=== PATIENT | female | born 1970 | race Caucasian/White ===

== ENCOUNTER 2017-05-27 12:33 | Inpatient (IN) | payer BC ==
[2017-05-27 12:38] VITALS: BMI 36.0
--- NOTE | 2017-05-27 14:19 | PDOC ---
History of Present Illness <Ra Wellington - Last Filed: 05/27/17 14:18> - General History Source: Patient Exam Limitations: No Limitations - History of Present Illness Initial Comments: 05/27/17 14:47 Patient is a 46F with history of non insulin dependent diabetes here today complaining of a right foot drop for the past couple of weeks. She endorses associated lower back pain and right foot numbness. She denies urinary incontinence. She denies nausea, vomiting, fevers and chills. She denies chest pain, abdominal pain and shortness of breath. She has been evaluated by Dr. Marroquin , neurosurgeon, already who is taking her to the OR. <Jose Martin Jason - Last Filed: 05/27/17 16:02> - General Chief Complaint: Weakness Stated Complaint: WEAKNESS Time Seen by Provider: 05/27/17 14:18 Past History - Past Medical History Diabetes: Yes - Psycho/Social/Smoking Cessation Hx Suicidal Ideation: No Smoking History: Current every day smoker Number of Cigarettes Smoked Daily: 5 Information on smoking cessation initiated: No <Ra Wellington - Last Filed: 05/27/17 14:18> <Jose Martin Jason - Last Filed: 05/27/17 16:02> - Past Medical History Allergies/Adverse Reactions: Allergies Allergy/AdvReac Type Severity Reaction Status Date / Time No Known Allergies Allergy Verified 05/27/17 12:38 Home Medications: Ambulatory Orders Glyburide 2 mg PO HS 05/27/17 Glyburide [Diabeta -] 1 mg PO DAILY 05/27/17 Metformin HCl 500 mg PO DAILY 05/27/17 Metformin HCl [Glucophage] 1,000 mg PO HS 05/27/17 Review of Systems - Review of Systems Comments:: 05/27/17 14:51 GENERAL/CONSTITUTIONAL: No fever or chills. No weakness. HEAD, EYES, EARS, NOSE AND THROAT: No change in vision. No ear pain or discharge. No sore throat. CARDIOVASCULAR: No chest pain or shortness of breath RESPIRATORY: No cough, wheezing, or hemoptysis. GASTROINTESTINAL: No nausea, vomiting, diarrhea or constipation. GENITOURINARY: No dysuria, frequency, or change in urination. MUSCULOSKELETAL: Positive for lower back pain. SKIN: No rash NEUROLOGIC: No headache, vertigo, loss of consciousness. Positive for right foot weekness and numbness HEMATOLOGIC/LYMPHATIC: No anemia, easy bleeding, or history of blood clots. ALLERGIC/IMMUNOLOGIC: No hives or skin allergy. <Jose Martin Jason - Last Filed: 05/27/17 16:02> *Physical Exam - Vital Signs Last Vital Signs Temp Pulse Resp BP Pulse Ox 98 F 111 H 18 151/80 97 05/27/17 12:35 05/27/17 12:35 05/27/17 12:35 05/27/17 12:35 05/27/17 12:35 <Ra Wellington - Last Filed: 05/27/17 14:18> - Vital Signs Last Vital Signs Temp Pulse Resp BP Pulse Ox 98 F 111 H 18 151/80 97 05/27/17 12:35 05/27/17 12:35 05/27/17 12:35 05/27/17 12:35 05/27/17 12:35 - Physical Exam Comments: 05/27/17 14:52 GENERAL: Awake, alert, and fully oriented, in no acute distress HEAD: No signs of trauma, normocephalic, atraumatic EYES: PERRLA, EOMI, sclera anicteric, conjunctiva clear ENT: Auricles normal inspection, hearing grossly normal, nares patent, oropharynx clear without exudates. Moist mucosa NECK: Normal ROM, supple, no lymphadenopathy, JVD, or masses LUNGS: No distress, speaks full sentences, clear to auscultation bilaterally HEART: Regular rate and rhythm, normal S1 and S2, no murmurs, rubs or gallops, peripheral pulses normal and equal bilaterally. ABDOMEN: Soft, nontender, normoactive bowel sounds. No guarding, no rebound. No masses EXTREMITIES: Normal inspection, Normal range of motion, no edema. No clubbing or cyanosis. NEUROLOGICAL: Cranial nerves II through XII grossly intact. Normal speech, 3/5 strength in right foot SKIN: Warm, Dry, normal turgor, no rashes or lesions noted. <Jose Martin Jason - Last Filed: 05/27/17 16:02> ED Treatment Course - LABORATORY CBC & Chemistry Diagram: 05/27/17 14:35 05/27/17 14:35 - RADIOLOGY Radiology Studies Ordered: Category Date Time Status CHEST X-RAY PORTABLE* [RAD] Stat Radiology 05/27/17 14:30 Ordered <Jose Martin Jason - Last Filed: 05/27/17 16:02> Medical Decision Making - Medical Decision Making 05/27/17 14:53 Patient is a 46F with history of non-insulin dependent diabetes here today complaining of right sided foot drop secondary to radiculopathy. Already evaluated by Dr. Marroquin, who will take to OR. Vital signs stable. Will admit to medicine. <Jose Martin Jason - Last Filed: 05/27/17 16:02> *DC/Admit/Observation/Transfer - Attestations Physician Attestion: 05/27/17 14:19 I, Dr. Ra Wellington, attest that this document has been prepared under my direction and personally reviewed by me in its entirety. I further attest, that it accurately reflects all work, treatment, procedures and medical decision -making performed by me. <Ra Wellington - Last Filed: 05/27/17 14:18> - Discharge Dispostion Admit: Yes <Jose Martin Jason - Last Filed: 05/27/17 16:02> Diagnosis at time of Disposition: Right foot drop - Discharge Dispostion Condition at time of disposition: Unchanged/Unknown
--- NOTE | 2017-05-27 14:40 | PN ---
Progress Note (short form) - Note Progress Note: NEUROSURGERY CONSULT DICTATED Pt examined MRI reviewed Acute R foot drop R EHL/inv 2/5; R TA/ev 3-4-; numbness R L4-5 Wbc 12.4; Bun/Cr normal MRI- R L4-5 HNP with downwardly extruded fragement with R thecal sac and R L5 > L4 root impingement For emergency laminectomies R L4-5 and microdiscectomy D/w ED team Risks: bleeding, infection, CSF leak, nerve injury, general anesthesia, DVT/PE Risks somewhat higher given DM Pt will be admitted by medical team- Dr Alford All questions answered
[2017-05-27] MEDS ORDERED: BACITRACIN 15 GM TUBE TOPICAL OINTMENT ONE (14:42)
[2017-05-27 15:08] LABS: MEAN CELL VOLUME 82.3 fl (80-96); MEAN PLT VOLUME 10.9 fl (7.5-11.1); PLATELET COUNT 188 K/MM3 (134-434); WHITE BLOOD COUNT 12.4 K/mm3 (4.0-10.0)
[2017-05-27 15:11] LABS: ANION GAP 10 (8-16); BILIRUBIN,TOTAL 0.5 mg/dL (0.2-1.0); CALCIUM 10.1 mg/dL (8.5-10.1); CO2 25 mmol/L (21-32); CREATININE 0.7 mg/dL (0.55-1.02); GLUCOSE,RANDOM 116 mg/dL (74-106); SGOT/AST 7 U/L (15-37); SGPT/ALT 20 U/L (12-78); TOT PROT 7.4 g/dl (6.4-8.2)
[2017-05-27 15:12] LABS: ALK PHOS 52 U/L (45-117)
[2017-05-27 15:13] LABS: URINE APPEARANCE SLCLOUDY; URINE BILIRUBIN NEGATIVE (NEGATIVE); URINE BLOOD 1+ (NEGATIVE); URINE COLOR YELLOW; URINE GLUCOSE (UA) NEGATIVE (NEGATIVE); URINE KETONE NEGATIVE (NEGATIVE); URINE LEUK ESTERASE NEGATIVE (NEGATIVE); URINE NITRITE NEGATIVE (NEGATIVE); URINE PROTEIN NEGATIVE (NEGATIVE); URINE UROBILINOGEN NEGATIVE mg/dL (0.2-1.0)
[2017-05-27 15:19] LABS: INR 1.01 (0.82-1.09); PROTHROMBIN TIME (PATIENT) 11.1 SEC (9.98-11.88)
[2017-05-27 15:40] LABS: URINE BACTERIA RARE /hpf (NONE SEEN); URINE MUCUS RARE; URINE RBC <1 /hpf (0-3); URINE WBC 2 /hpf (3-5)
[2017-05-27] MEDS ORDERED: PROPOFOL 20 ML ONE (15:41)
[2017-05-27] MEDS ORDERED: MIDAZOLAM HCL 2 MG/2 ML SINGLE DOSE VIAL ONE ×2 (15:41)
[2017-05-27] MEDS ORDERED: ROCURONIUM BROMIDE 50 MG/5 ML VIAL ONE ×2 (15:41→16:35)
[2017-05-27] MEDS ORDERED: ONDANSETRON 4 MG/2 ML VIAL ONE (16:26)
[2017-05-27] MEDS ORDERED: ceFAZolin SODIUM 1 GM VIAL ONE (16:26)
[2017-05-27] MEDS ORDERED: ceFAZolin SODIUM 1 GM VIAL IVPB ONE (16:27)
[2017-05-27] MEDS ORDERED: glyBURIDE 2.5 MG TABLET (FP) PO SCH (16:30)
[2017-05-27] MEDS ORDERED: THROMBIN (BOVINE) 5,000 UNIT VIAL TP ONE (16:40)
[2017-05-27] MEDS ORDERED: GELATIN SPONGE,ABSORBABLE 1 GM PACKET TP ONE (16:40)
[2017-05-27] MEDS ORDERED: BACITRACIN 50,000 UNITS VIAL TP ONE (16:50)
[2017-05-27] MEDS ORDERED: PROMETHAZINE HCL 25 MG/1 ML VIAL IVPUSH PRN (17:46)
[2017-05-27] MEDS ORDERED: ONDANSETRON 4 MG/2 ML VIAL IVPUSH PRN (17:46)
[2017-05-27] MEDS ORDERED: HYDROmorphone HCL CARPU-JECT 1 MG/1 ML DISP.SYRIN IVPUSH PRN (17:46)
[2017-05-27] MEDS ORDERED: LACTATED RINGERS SOLUTION 1,000 ML IV SCH (18:00)
[2017-05-27] MEDS ORDERED: GLYCOPYRROLATE 0.2 MG/1 ML VIAL ONE (18:17)
[2017-05-27] MEDS ORDERED: NEOSTIGMINE METHYLSULFATE 0.5 MG/ML - 10 ML MDV ONE (18:17)
--- NOTE | 2017-05-27 18:40 | OP ---
Operative Note - Note: Operative Date: 05/27/17 Pre-Operative Diagnosis: R L4-5 HNP with stenosis and foot drop Operation: R L4-L5 partial laminectomies, medial facetectomy, lysis of dense adhesion; microdiscectomy; microdissection Findings: Extremely deep exposure; thinned out dura under pressure and bulging out; extruded disc Surgeon: Jose Martin Marroquin House Father: Joanne Tsang Anesthesiologist/GAS MAIN AND LINE FITTER: Cynthia Tanner Anesthesia: General Specimens Removed: R L4-5 disc Estimated Blood Loss (mls): 25 Operative Report Dictated: Yes
--- NOTE | 2017-05-27 18:49 | EKG ---
Test Reason : Blood Pressure : / mmHG Vent. Rate : 089 BPM Atrial Rate : 089 BPM P-R Int : 130 ms QRS Dur : 080 ms QT Int : 366 ms P-R-T Axes : 039 031 020 degrees QTc Int : 445 ms NORMAL SINUS RHYTHM POSSIBLE LEFT ATRIAL ENLARGEMENT BORDERLINE ECG NO PREVIOUS ECGS AVAILABLE Confirmed by YONATHAN PIERRE MD ([id number]) on 05/27/2017 6:49:03 PM Referred By: Confirmed By:YONATHAN PIERRE MD
--- NOTE | 2017-05-27 18:50 | PN ---
Progress Note (short form) - Note Progress Note: NEUROSURGERY In PACU R leg feels OK CV- RRR; Lungs- CTA; Abd- benign; Ext- no sign of DVT PE: R EHL/inv 3/5; R TA/ev 4-; numbness R L4-5 overall improved Dressing C/D/I FS 110's Bedrest x 24 hours given intra-op findings Encouraged R foot exercises in bed All questions answered Findings d/w /family in PACU as well
[2017-05-27] MEDS: D5-1/2NS+20 MEQ KCL - 1,000 ML IV SCH (21:39)
[2017-05-27] MEDS: DOCUSATE SODIUM 100 MG CAPSULE (FP) PO SCH (21:40)
[2017-05-27] MEDS: diazePAM 5 MG TABLET PO SCH (21:40)
--- NOTE | 2017-05-27 22:17 | HP ---
Admitting History and Physical - Primary Care Physician PCP: Trish Alford S - Admission Chief Complaint: LBP RLE pain and R foot drop x 2 weeks History of Present Illness: Patient is a 46F with history of non insulin dependent diabetes admitted today after complaining of a right foot drop for the past couple of weeks. She endorses associated lower back pain and right foot numbness. She denies urinary incontinence. She denies nausea, vomiting, fevers and chills. She denies chest pain, abdominal pain and shortness of breath. She had been evaluated by Dr. Marroquin , neurosurgeon, and had emergent laminectomy earlier today; I reviewed pt's labs , chart previously pt states she is not pt is postop axox3 nad some back pain after surgery, less RLE pain, able to move R foot but still has some weakness family (siblings)_ at bedside, d/w them also History Source: Patient, Family Member, Medical Record Limitations to Obtaining History: No Limitations - Past Medical History Endocrine: Yes: Diabetes Mellitus - Smoking History Smoking history: Current every day smoker Aproximately how many cigarettes per day: 5 - Alcohol/Substance Use Hx Alcohol Use: No History of Substance Use: reports: None - Social History Usual Living Arrangement: Yes: Alone ADL: Independent Occupation: patrol sergeant [employer] History of Recent Travel: No Home Medications - Allergies Allergies/Adverse Reactions: Allergies Allergy/AdvReac Type Severity Reaction Status Date / Time No Known Allergies Allergy Verified 05/27/17 12:38 - Home Medications Home Medications: Ambulatory Orders Glyburide 2 mg PO HS 05/27/17 Glyburide [Diabeta -] 1 mg PO DAILY 05/27/17 Metformin HCl 500 mg PO DAILY 05/27/17 Metformin HCl [Glucophage] 1,000 mg PO HS 05/27/17 Family Disease History - Family Disease History Family History: Unremarkable Review of Systems - Review of Systems Constitutional: denies: Chills, Fever, Lethargy Eyes: denies: Blind Spots, Blurred Vision, Double Vision HENT: denies: Ear Pain Neck: denies: Decreased ROM, Tenderness Cardiovascular: denies: Chest Pain, Edema, Palpitations, Shortness of Breath Respiratory: denies: Cough, SOB Gastrointestinal: reports: Nausea (after anesthesia). denies: Abdominal Pain, Constipation, Diarrhea, Vomiting Genitourinary: denies: Burning, Discharge, Dysuria, Flank Pain Musculoskeletal: reports: Back Pain, Extremity Pain Integumentary: denies: Pruritis, Rash Neurological: reports: Pre-Existing Deficit (RLE pain and numbness, R foot drop) . denies: Confusion, Dizziness Endocrine: denies: Excessive Sweating, Flushing Hematology/Lymphatic: denies: Easily Bruised, Excessive Bleeding Psychiatric: denies: Altered Sleep Pattern, Anxiety, Depression, Suicidal Physical Examination Vital Signs: Vital Signs Temperature 98.0 F 05/27/17 20:00 Pulse Rate 78 05/27/17 20:00 Respiratory Rate 18 05/27/17 20:00 Blood Pressure 108/50 05/27/17 20:00 O2 Sat by Pulse Oximetry (%) 100 05/27/17 19:45 Constitutional: Yes: No Distress, Calm Eyes: Yes: Conjunctiva Clear HENT: Yes: Atraumatic Neck: Yes: Supple Cardiovascular: Yes: Regular Rate and Rhythm Respiratory: Yes: CTA Bilaterally Gastrointestinal: Yes: Soft. No: Distention, Tenderness Renal/: No: CVA Tenderness - Left, CVA Tenderness - Right Musculoskeletal: No: Joint Stiffness, Joint Swelling Extremities: Yes: Other (R foot some residula weakness noted). No: Cold, Cool, Cyanosis Edema: No Peripheral Pulses WNL: Yes Integumentary: No: Rash, Venous Stasis Changes Neurological: Yes: WNL, Alert, Oriented ...Motor Strength: WNL (limited exam, pt in bed postop - moves U/LE bilat but some R foot drop noted) Psychiatric: Yes: WNL, Alert, Oriented. No: Agitated, Suicidal Ideation Labs: CBC, BMP 05/27/17 14:35 05/27/17 14:35 Imaging - Results Other: Report Reviewed Assessment/Plan Patient is a 46F with history of non insulin dependent diabetes admitted with LBP and a right foot drop for the past couple of weeks. She has been evaluated by Dr. Marroquin, neurosurgeon, and already had emergent laminectomy BGM control; sq insulin per sliding scale pain meds stools softeners incentive spirometry falls DVT pfx to start PT per NS no smoking; weight loss; d/w pt and family at bedside
[2017-05-28] MEDS: CEFAZOLIN 1 GM/D5W 50 ML IVPB SCH ×2 (01:45→11:17)
[2017-05-28] MEDS: diazePAM 5 MG TABLET PO SCH ×3 (02:40→17:38)
[2017-05-28] MEDS: DOCUSATE SODIUM 100 MG CAPSULE (FP) PO SCH ×3 (06:28→22:47)
[2017-05-28] MEDS: metFORMIN HCL 500 MG TABLET (FP) PO SCH ×2 (06:29→17:27)
[2017-05-28] MEDS ORDERED: glyBURIDE 1.25 MG TABLET PO SCH ×2 (07:00)
--- NOTE | 2017-05-28 07:33 | PN ---
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
[2017-05-28] MEDS: HYDROmorphone *PCA* 10MG/50ML DISP.SYRIN PCA SCH ×2 (08:18→17:38)
--- NOTE | 2017-05-28 08:45 | CONS ---
DATE OF CONSULTATION: 05/27/2017 CHIEF COMPLAINT: Progressive right foot drop. HISTORY OF PRESENT ILLNESS: The patient is a 46-year-old right-handed female with history of obesity and type 2 diabetes, who complains of a several-week history of sciatica. It had started a while back, and her pain has actually improved after taking a steroid dose pack and some pain medications. However, over the past week and a half, she started experiencing increasing right-leg weakness and was walking with a limp. She was noticed by her employer, who was a physician, to have the walking difficulty. The patient meanwhile has been dragging her right foot, which has been worsening the past few days. There is also numbness in her right leg. She denies bowel/bladder dysfunction. She did have lower back problem in the past. She has no fever or chills or any sign of infection. In fact, there have been no recent infections. She denies any chest pain, shortness of breath, or any cardiac issues. The patient was seen by a physical therapist and was advised to see a neurosurgeon right away. PAST MEDICAL HISTORY: Significant for diabetes, obesity. MEDICATIONS: Include glimepiride and Glucophage. ALLERGIES: There are no known drug allergies. FAMILY HISTORY: Noncontributory. Noncontributory for any spinal disease. SOCIAL HISTORY: She smokes half-a-pack of cigarettes a day and was very strongly encouraged to quit smoking. She drinks alcohol socially. She lives at home with her family. REVIEW OF SYSTEMS: Otherwise negative for other major cardiovascular, pulmonary , gastrointestinal, genitourinary, endocrinologic, neurologic, psychologic, or constitutional problems except for the above. PHYSICAL EXAMINATION: Vital signs: Temperature is 98, blood pressure is 151/80, pulse rate 111, O2 saturation is 97% on room air. HEENT: Examination shows her to be normocephalic, atraumatic, anicteric. Neck: Supple with no lymphadenopathy, no carotid bruit. Coronary: Examination demonstrates a regular rhythm without a murmur. Lungs: Clear to auscultation bilaterally. Abdomen: Benign. Extremities: Examination shows no signs of DVT. Neurologic: She is awake and alert and oriented x4. Cranial nerve examination is intact 2-12. Motor examination shows 5/5 strength except right lower extremity. Right extensor hallucis longus is 2/5. There is right foot inversion. Right tibialis anterior and foot eversion are 4-/3-4-/5. Right quadriceps and planter flexion are 4+/5. Left lower extremity strength is 5/5. Sensory examination demonstrates sensation to be intact to light touch and vibratory sensation of right L5 greater than L4 and S1 distribution. Deep tendon reflexes showed 2+ throughout. There is no pathological long tract sign. Her gait is antalgic and she favors right lower extremity. She also has a right flip-flop. Examination of the lower back shows a paraspinal muscle spasm predominantly right side and right-sided sciatic notch_ tenderness. She has negative straight-leg raising on the right to 60 degrees. IMAGING: MRI of the lumber spine demonstrated L4-L5 degenerative disc disease with right-sided paracentral disc herniation or downward extruding disc fragment. There is impingement of thecal sac as well as right L4 and L5 nerve roots. There is mild spondylosis throughout. LABORATORY DATA: Lab results are pending. IMPRESSION: 1. Right L4-L5 paracentral disc herniation with acute right L4-L5 radiculopathy including acute foot drop. 2. Diabetes. RECOMMENDATIONS: The patient presented with progressive right foot drop. Her strength has been worsening over the last week and a half at least. She walks with audible flip- flop, and has weakness and numbness in the right lower extremity corresponding predominantly to the L5 distribution. This also corresponds to her L4-L5 herniated disc on her right on the MRI. She is a candidate for an emergency right L4-L5 laminectomy and microdiscectomy for her foot drop. The risks of procedure include, but are not limited to, bleeding, infection, dural tear with CSF leak, neurological injury including thromboembolic risk, and other risks of general anesthesia. Given that she is diabetic, her risk are somewhat higher. The patient understands the indications for the procedure, the procedure in detail, risks and benefits, and alternative treatments for her lumbar condition, and she wished to proceed. No guarantees were given for a favorable outcome. She will be admitted by the medical team and will have baseline blood tests as well as chest x-ray and EKG done. All questions were answered at beside in the emergency room. Her family was also present, and all questions were answered. We also discussed potential recovery course, as well. Given her neurological progress and neurological deficit and corresponding neuroimaging findings, surgery unfortunately is the only way to go , and the emergency surgery is called for because of her foot drop. CANDIDO BABIN M.D. ARACELIS/[id number] MTDD
--- NOTE | 2017-05-28 08:45 | PN ---
Progress Note (short form) - Note Progress Note: Anesthesia postop note 46 y/o F s/p GA for Lumbar laminectomy, Dilaudid back up scan coordinator for postop pain management POD#1, vss, aaox3, pain well controlled overnight, no anesthesia complications. Will continue back up scan coordinator today.
--- NOTE | 2017-05-28 10:15 | PN ---
Progress Note, Physician Chief Complaint: in bed did not get OOB yet; less back pain, less RLE pain, more strong R foot - Current Medication List Current Medications: Active Medications Diazepam (Valium -) 5 mg PO Q8H [facility] Last Admin: 05/28/17 09:57 Dose: 5 mg Docusate Sodium (Colace -) 100 mg PO TID [facility] Last Admin: 05/28/17 06:28 Dose: 100 mg Glimepiride (Amaryl -) 1 mg PO DAILY@0700 [facility] Glimepiride (Amaryl -) 2 mg PO DAILY@1700 [facility] Hydromorphone HCl (Dilaudid Pediatric Nurse Practitioner -) 0 mg MEDICINE AIDE MEDICINE AIDE [facility]QUEZ PRN Reason: Protocol Stop: 05/30/17 17:48 Last Admin: 05/28/17 08:18 Dose: Not Given Cefazolin Sodium (Ancef 1 Gm Premixed Ivpb -) 50 mls @ 100 mls/hr IVPB Q8H-IV [facility] Stop: 05/28/17 10:29 Last Admin: 05/28/17 01:45 Dose: 100 mls/hr Potassium Chloride/Dextrose/Sod Cl (D5-1/2ns+20 Meq Kcl -) 1,000 mls @ 100 mls/ hr IV ASDIR [facility] Last Admin: 05/27/17 21:39 Dose: Not Given Metformin HCl (Glucophage -) 500 mg PO ACBK [facility] Last Admin: 05/28/17 06:29 Dose: Not Given Metformin HCl (Glucophage -) 1,000 mg PO ACDIN [facility] - Objective Vital Signs: Vital Signs Temperature 98.9 F 05/28/17 06:00 Pulse Rate 77 05/28/17 06:00 Respiratory Rate 20 05/28/17 06:00 Blood Pressure 99/50 05/28/17 06:00 O2 Sat by Pulse Oximetry (%) 100 05/27/17 23:39 Constitutional: Yes: No Distress, Calm Eyes: Yes: Conjunctiva Clear HENT: Yes: Atraumatic Neck: Yes: Supple Cardiovascular: Yes: Regular Rate and Rhythm Respiratory: Yes: CTA Bilaterally Gastrointestinal: Yes: Soft. No: Distention, Tenderness Genitourinary: No: CVA Tenderness - Left, CVA Tenderness - Right, Hematuria Musculoskeletal: No: Joint Stiffness, Joint Swelling Extremities: No: Cold, Cool, Cyanosis Edema: No Peripheral Pulses WNL: Yes Integumentary: No: Rash, Venous Stasis Changes Neurological: Yes: WNL, Alert, Oriented ...Motor Strength: WNL (R foot drop improving) Psychiatric: Yes: WNL, Alert, Oriented. No: Agitated, Suicidal Ideation Labs: CBC, BMP 05/27/17 14:35 05/27/17 14:35 INR, PTT INR 1.01 (0.82-1.09) 05/27/17 14:35 - ....Imaging Other: Report Reviewed Assessment/Plan Patient is a 46F with history of non insulin dependent diabetes admitted with LBP and a right foot drop for the past couple of weeks. She has been evaluated by Dr. Marroquin, neurosurgeon, and already had emergent laminectomy BGM control; sq insulin per sliding scale pain meds stools softeners incentive spirometry falls DVT pfx to start PT per NS no smoking; weight loss; d/w pt and staff
--- NOTE | 2017-05-28 11:34 | SURG ---
Surgery Sports Journalist Note Sports Journalist: Joanne Tsang PA-C Date of Service: 05/27/17 Diagnosis: R L4-5 HNP with stenosis and foot drop Procedure: R L4-L5 partial laminectomies, medial facetectomy, lysis of dense adhesion; microdiscectomy; microdissection I was present for the entirety of the operative procedure. For further detail, please refer to operative report. Visit type - Case Type Case Type: ED Admission - Emergency Emergency Visit: Yes Care time: The patient presented to the Emergency Department on the above date and was hospitalized for further evaluation of their emergent condition. - New patient This patient is new to me today: Yes Date on this admission: 05/28/17 - Critical Care Critical Care patient: No
[2017-05-28] MEDS ORDERED: DEXTROSE 5%-WATER - 50 ML IVPB ONE (12:15)
[2017-05-28] MEDS ORDERED: ceFAZolin SODIUM 1 GM VIAL ONE (12:15)
[2017-05-28] MEDS ORDERED: CEFAZOLIN 1 GM in DEXTROSE 5%-WATER - 50 ML IVPB ONE (12:16)
[2017-05-28] MEDS ORDERED: glyBURIDE 2.5 MG TABLET (FP) PO SCH ×2 (16:30)
[2017-05-28] MEDS: D5-1/2NS+20 MEQ KCL - 1,000 ML IV SCH (17:26)
[2017-05-28] MEDS: GLIMEPIRIDE 2 MG TABLET (FP) PO SCH (17:28)
[2017-05-29] MEDS: diazePAM 5 MG TABLET PO SCH ×3 (02:06→18:10)
[2017-05-29] MEDS ORDERED: PT OWN MED DRAWER 7, Y5N ONE ×4 (05:55→17:12)
[2017-05-29] MEDS: metFORMIN HCL 500 MG TABLET (FP) PO SCH ×2 (06:21→17:22)
[2017-05-29] MEDS: DOCUSATE SODIUM 100 MG CAPSULE (FP) PO SCH ×3 (06:21→21:57)
[2017-05-29] MEDS: GLIMEPIRIDE 1 MG TABLET (FP) PO SCH (06:21)
--- NOTE | 2017-05-29 07:42 | PN ---
Progress Note (short form) - Note Progress Note: NEUROSURGERY POD #3 Incisional pain Mild H/A and nausea R leg feels better, minimal sciatica Tmax 99.1, VSS CV- RRR; Lungs- CTA; Abd- benign; Ext- no sign of DVT PE: R EHL/inv 4-/5; R TA/ev 4-4-; numbness R L4-5 Dressing C/D/I- changed OOB with assistance PT Encouraged R foot exercises in bed Incentive spirometry Change pain meds
[2017-05-29 07:51] LABS: BASOPHIL 0.4 % (0-2.0); EOSINOPHIL 1.1 % (0-4.5); MCH 27.1 pg (25.7-33.7); MCHC 32.7 g/dl (32.0-36.0); MEAN PLT VOLUME 10.9 fl (7.5-11.1); NEUTROPHILS 71.9 % (42.8-82.8); PLATELET COUNT 167 K/MM3 (134-434); WHITE BLOOD COUNT 13.9 K/mm3 (4.0-10.0)
[2017-05-29 08:29] LABS: ALBUMIN 2.8 g/dl (3.4-5.0); ANION GAP 6 (8-16); CALCIUM 8.2 mg/dL (8.5-10.1); CO2 28 mmol/L (21-32); CREATININE 0.5 mg/dL (0.55-1.02); GLUCOSE,RANDOM 141 mg/dL (74-106); SGOT/AST 6 U/L (15-37); SGPT/ALT 14 U/L (12-78)
[2017-05-29 08:30] LABS: ALK PHOS 50 U/L (45-117); BILIRUBIN,TOTAL 0.6 mg/dL (0.2-1.0); TOT PROT 5.7 g/dl (6.4-8.2)
--- NOTE | 2017-05-29 08:47 | PN ---
Progress Note, Physician Chief Complaint: Pt. pain controlled adequately, had some nausea with SPEECH THERAPY TEACHER. - Current Medication List Current Medications: Active Medications Diazepam (Valium -) 5 mg PO Q8H [facility] Last Admin: 05/29/17 02:06 Dose: 5 mg Docusate Sodium (Colace -) 100 mg PO TID [facility] Last Admin: 05/29/17 06:21 Dose: 100 mg Glimepiride (Amaryl -) 1 mg PO DAILY@0700 [facility] Last Admin: 05/29/17 06:21 Dose: 1 mg Glimepiride (Amaryl -) 2 mg PO DAILY@1700 [facility] Last Admin: 05/28/17 17:28 Dose: 2 mg Potassium Chloride/Dextrose/Sod Cl (D5-1/2ns+20 Meq Kcl -) 1,000 mls @ 100 mls/ hr IV ASDIR [facility] Last Admin: 05/28/17 17:26 Dose: 100 mls/hr Metformin HCl (Glucophage -) 500 mg PO ACBK [facility] Last Admin: 05/29/17 06:21 Dose: 500 mg Metformin HCl (Glucophage -) 1,000 mg PO ACDIN [facility] Last Admin: 05/28/17 17:27 Dose: 1,000 mg Oxycodone HCl (Roxicodone -) 5 mg PO Q4H PRN PRN Reason: PAIN - Objective Vital Signs: Vital Signs Temperature 98.8 F 05/29/17 06:00 Pulse Rate 85 05/29/17 06:00 Respiratory Rate 20 05/29/17 06:00 Blood Pressure 117/52 05/29/17 06:00 O2 Sat by Pulse Oximetry (%) 100 05/28/17 22:00 Constitutional: Yes: Well Nourished, No Distress, Calm Neurological: Yes: WNL, Alert, Oriented ...Motor Strength: WNL Labs: CBC, BMP 05/29/17 07:40 INR, PTT INR 1.01 (0.82-1.09) 05/27/17 14:35 Assessment/Plan POD#1 s/p L4-5 Lumbar laminectomy under GA. Doing well. 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 Dr. Marroquin to start oral pain medication
[2017-05-29] MEDS: D5-1/2NS+20 MEQ KCL - 1,000 ML IV SCH ×2 (08:54→18:31)
--- NOTE | 2017-05-29 11:11 | OP ---
DATE OF OPERATION: 05/27/2017 PREOPERATIVE DIAGNOSES: 1. Lumbar degenerative disk disease. 2. L4-5. 3. Obesity. 4. Diabetes. POSTOPERATIVE DIAGNOSES: 1. Lumbar degenerative disk disease. 2. L4-5. 3. Obesity. 4. Diabetes. ATTENDING SURGEON: Jose Martin Babin MD LIBRARY CIRCULATION ASSISTANT: NORIS Steward PROCEDURES: 1. Partial right L4 and L5 laminectomies including medial facetectomy and foraminotomy for decompression of thecal sac at right L4 and L5 nerve roots. 2. Right L4-5 microdiscectomy. 3. Microsurgical dissection with the operating microscope and microsurgical technique (52200). ANESTHESIA: General endotracheal. ANESTHESIOLOGIST: Cynthia Tanner MD ESTIMATED BLOOD LOSS: Was 25 mL. FINDINGS: 1. Significant pressure on dural sac with extremely thinned out dura, bulging out after lamina and ligament removal. 2. Dense epidural fibrosis. INDICATIONS: The patient is a 46-year-old female with history of obesity and diabetes and hypertension who several months ago, she had exacerbation of her lower back pain with sciatica. Sciatica subsided but over the past couple of weeks, she started developing right leg numbness and weakness. She was starting to walk with a foot drop. An MRI demonstrated previously L4-5 disk herniation. Because of her progressive neurological deficits including a foot drop, she was evaluated in the emergency room and admitted for surgical intervention. The risks of surgery included but were not limited to bleeding, infection, dural tear with CSF leak, neurological injury, increased thromboembolic risks, and other risks of general anesthesia. Because of her long-standing back problem and diabetes the risks are higher. The patient understood the indications for the procedure, the procedure in detail, risks and benefits, and alternatives for treatment of her lumbar condition and wished to proceed. No guarantees were given for a favorable outcome. PROCEDURE IN DETAIL: After the patient was taken to the operating room, she was placed in supine position. After general anesthesia was induced and appropriate monitoring lines were placed, the patient was turned into a prone position on a Kapil frame. All pressure points were checked and padded. Lumbar region was cleaned with alcohol and prepped with Betadine, and localization was obtained with the spinal needle in place. An approximately 1/2-inch incision was planned over the L4-5 interlaminar space. The O2 saturation was checked for both lower extremity with patient in the prone position, and they were both 100%. A skin incision was done with a No. 10 blade. The surgical approach was extremely deep. The dorsal lumbar fascia was closed on the right side only with periosteal elevator and monopolar electrocautery. The L4 and L5 lamina were exposed on the right. The exposure was rather deep, and the Camelia retractor was needed in order to obtain adequate exposure and retraction. After position of the localizing clamp was verified at L4-5 level, partial right L4 and L5 laminectomies were carried out with high speed pneumatic drill, angled curette, and Kerrison rongeur. A small amount of medial facetectomy approximately 10% was carried out to gain access in the lateral recess. The underlying ligamentum flavum was dissected free medially first, and it was reflected laterally. The dura was bulging out, even by opening the ligamentum of flavum. It was obviously under pressure. The dura was also extremely thinned out, indicating the chronic pressure on the dural sac. Laminectomy was extended further to L4 as well as further down to L5, beginning further decompression of the thecal sac. After this portion was performed, the dural thecal sac was pulsating with CSF pulsation. The lateral recess needed to be decompressed further with Kerrison rongeur in order to gain access. Dense epidural fibrosis was noted laterally and anteriorly. It was nearly impossible to mobilize the right L5 nerve root. Right L5-S1 foraminotomy was carried out on the right side to free up the right L5 nerve root further. After this was done, meticulous epidural dissection was carried out to lyse the epidural adhesion. Epidural hemostasis was obtained with bipolar electrocautery. A fragment of the extruded disk material was mobilized with a nerve hook and removed with pituitary rongeur. The wound was intermittently irrigated with antibiotics and irrigation. Because of the lateral recess narrowing and epidural fibrosis, a medial facetectomy needed to be extended slightly further laterally in order to achieve decompression and to lyse the adhesions free of the right L5 nerve root. Epidural hemostasis was obtained. The dural sac of the L4 and L5 nerve roots were all decompressed, and a dental tool was used to palpate the nerve roots and neuroforamen at L4-5 and L5-S1. After decompression was completed, the dural sac was pulsating nicely with CSF pulsation. The dura was thin and transparent, and was clearly under significant chronic pressure as well. It was decided to leave a layer of DuraSeal over the epidural space after the wound was irrigated with antibiotic irrigation. At this point, dorsal lumbar fascia was closed with 0 Vicryl suture. Subcutaneous fascia was closed with 3-0 Vicryl suture. Skin was closed with 0 nylon interrupted suture. Sterile occlusive dressing was applied. Microsurgical techniques were utilized throughout, and the use of the operative microscope was essential for the procedure because of the patients depth as well as epidural fibrosis. The patient tolerated the procedure well and was turned back to the supine position and extubated. She was starting to move her bilateral lower extremities in the recovery room. Right dorsiflexion strength does appear to have improved somewhat, even initially in recovery. All needles and lap counts were correct. The OR timeout procedure was followed. The patient did received 1 dose of 2 g of Ancef prior to the incision. The patient and the family were all updated as to the intraoperative findings. She will be put on bedrest for 24 hours post-op as a precaution. The patient and family members were updated as to the intra-operative findings and patient' s post- operative condition. JOSE MARTIN BABIN M.D. [id number] MTDD
--- NOTE | 2017-05-29 12:50 | PN ---
Progress Note, Physician Chief Complaint: sitting at the bedside had breakfast less pain, walked to the bathroom, in good spirits; less back and leg pain, R foot stronger sister at bedside - Current Medication List Current Medications: Active Medications Diazepam (Valium -) 5 mg PO Q8H [facility] Last Admin: 05/29/17 10:17 Dose: 5 mg Docusate Sodium (Colace -) 100 mg PO TID [facility] Last Admin: 05/29/17 06:21 Dose: 100 mg Glimepiride (Amaryl -) 1 mg PO DAILY@0700 [facility] Last Admin: 05/29/17 06:21 Dose: 1 mg Glimepiride (Amaryl -) 2 mg PO DAILY@1700 [facility] Last Admin: 05/28/17 17:28 Dose: 2 mg Potassium Chloride/Dextrose/Sod Cl (D5-1/2ns+20 Meq Kcl -) 1,000 mls @ 100 mls/ hr IV ASDIR [facility] Last Admin: 05/29/17 08:54 Dose: 100 mls/hr Metformin HCl (Glucophage -) 500 mg PO ACBK [facility] Last Admin: 05/29/17 06:21 Dose: 500 mg Metformin HCl (Glucophage -) 1,000 mg PO ACDIN [facility] Last Admin: 05/28/17 17:27 Dose: 1,000 mg Oxycodone HCl (Roxicodone -) 5 mg PO Q4H PRN PRN Reason: PAIN - Objective Vital Signs: Vital Signs Temperature 97.7 F 05/29/17 08:15 Pulse Rate 101 H 05/29/17 10:37 Respiratory Rate 18 05/29/17 08:15 Blood Pressure 90/53 05/29/17 08:15 O2 Sat by Pulse Oximetry (%) 98 05/29/17 10:37 Constitutional: Yes: No Distress, Calm Eyes: Yes: Conjunctiva Clear HENT: Yes: Atraumatic Neck: Yes: Supple Cardiovascular: Yes: Regular Rate and Rhythm Respiratory: Yes: CTA Bilaterally Gastrointestinal: Yes: Soft. No: Distention, Tenderness Genitourinary: No: CVA Tenderness - Left, CVA Tenderness - Right, Hematuria Musculoskeletal: No: Joint Stiffness, Joint Swelling Extremities: No: Cold, Cool, Cyanosis Edema: No Peripheral Pulses WNL: Yes Integumentary: No: Rash, Venous Stasis Changes Neurological: Yes: WNL, Alert, Oriented ...Motor Strength: WNL Psychiatric: Yes: WNL, Alert, Oriented. No: Agitated, Suicidal Ideation Labs: CBC, BMP 05/29/17 07:40 05/29/17 07:40 INR, PTT INR 1.01 (0.82-1.09) 05/27/17 14:35 - ....Imaging Other: Report Reviewed Assessment/Plan Patient is a 46F with history of non insulin dependent diabetes admitted with LBP and a right foot drop for the past couple of weeks. s/p emergent laminectomy BGM control; sq insulin per sliding scale pain meds stools softeners incentive spirometry falls DVT pfx to start PT per NS no smoking; weight loss; d/w pt and staff
[2017-05-29] MEDS: GLIMEPIRIDE 2 MG TABLET (FP) PO SCH (17:21)
[2017-05-29] MEDS: INSULIN SLIDING SCALE (NOVOLOG) 1 VIAL SQ SCH ×2 (17:24→22:00)
[2017-05-29] MEDS: oxyCODONE HCL 5 MG TABLET PO PRN (18:34)
[2017-05-30] MEDS: oxyCODONE HCL 5 MG TABLET PO PRN ×2 (00:53→10:55)
[2017-05-30] MEDS: diazePAM 5 MG TABLET PO SCH ×2 (02:06→10:11)
[2017-05-30] MEDS: DOCUSATE SODIUM 100 MG CAPSULE (FP) PO SCH ×2 (06:50→13:32)
[2017-05-30] MEDS ORDERED: PT OWN MED DRAWER 7, Y5N ONE (06:54)
[2017-05-30] MEDS: GLIMEPIRIDE 1 MG TABLET (FP) PO SCH (07:03)
[2017-05-30] MEDS: metFORMIN HCL 500 MG TABLET (FP) PO SCH (07:04)
[2017-05-30] MEDS: INSULIN SLIDING SCALE (NOVOLOG) 1 VIAL SQ SCH ×2 (07:05→11:43)
[2017-05-30 07:17] VITALS: TEMP 98.2
[2017-05-30 08:42] LABS: BASOPHIL 0.5 % (0-2.0); EOSINOPHIL 2.3 % (0-4.5); MCHC 32.4 g/dl (32.0-36.0); MEAN CELL VOLUME 83.4 fl (80-96); MEAN PLT VOLUME 10.6 fl (7.5-11.1); PLATELET COUNT 170 K/MM3 (134-434); RDW 13.9 % (11.6-15.6); WHITE BLOOD COUNT 11.6 K/mm3 (4.0-10.0)
--- NOTE | 2017-05-30 08:49 | PATH ---
Surgical Pathology Report Patient Name: DAFNE GANDARA Med. Rec. #: [id number] /Age/Gender: 1970 (Age: 46) / F Account: [id number] Location: [facility] MED/SURG Taken: 05/27/2017 Received: 05/28/2017 Reported: 05/30/2017 Physicians: Jose Martin Marroquin M.D. Specimen(s) Received DISC L4-L5 Clinical History Drop foot Final Diagnosis INTERVERTEBRAL DISC, L4-L5, DISCECTOMY: CARTILAGE WITH DEGENERATIVE CHANGES. Electronically Signed [place] Muhammad M.D. Gross Description Received in formalin labeled "disc L4-L5" is a 0.7 x 0.6 x 0.1 cm aggregate of [place] fragments of fibrocartilaginous tissue. The specimen is submitted in toto in one cassette. 05/28/201705/28/2017
--- NOTE | 2017-05-30 09:00 | PN ---
Progress Note (short form) - Note Progress Note: NEUROSURGERY POD #3 Feels better Incisional pain No sciatica, H/A,nausea Some incisional pain Tmax 99.5, VSS CV- RRR; Lungs- CTA; Abd- benign; Ext- no sign of DVT PE: R EHL/inv 4/5; R TA/ev 4-4-; numbness R L4-5 (overall improvement) Dressing C/D/I OOB with assistance PT eval Encouraged R foot exercises in bed Incentive spirometry Plan d/c home today with PRN oxycodone
[2017-05-30 09:09] LABS: ANION GAP 6 (8-16); CALCIUM 8.6 mg/dL (8.5-10.1); CO2 28 mmol/L (21-32); GLUCOSE,RANDOM 154 mg/dL (74-106)
[2017-05-30 09:10] LABS: CREATININE 0.6 mg/dL (0.55-1.02)
[2017-05-30 10:59] VITALS: BP 96/49; PULSE 81
--- NOTE | 2017-05-30 12:50 | DS ---
Physical Examination Vital Signs: Vital Signs Temperature 98.2 F 05/30/17 08:10 Pulse Rate 81 05/30/17 08:10 Respiratory Rate 18 05/30/17 08:10 Blood Pressure 96/49 05/30/17 08:10 O2 Sat by Pulse Oximetry (%) 98 05/29/17 21:00 Constitutional: Yes: Well Nourished Eyes: Yes: WNL HENT: Yes: WNL Neck: Yes: WNL Cardiovascular: Yes: WNL Respiratory: Yes: WNL Gastrointestinal: Yes: WNL ...Rectal Exam: Yes: WNL, Deferred Renal/: Yes: WNL Breast(s): Yes: WNL Edema: No Peripheral Pulses WNL: Yes Peripheral Pulses: Left Radial: 2+, Right Radial: 2+, Left Doralis Pedis: 2+, Right Dorsalis Pedis: 2+, Left Femoral: 2+, Right Femoral: 2+ Integumentary: Yes: WNL, Incision (clean and dry) Wound/Incision: Yes: Clean/Dry Neurological: Yes: WNL, Numbness ...Motor Strength: LLE (R EHL/TA 4-4+) Psychiatric: Yes: WNL Labs: CBC, BMP 05/30/17 07:00 05/30/17 07:00 Discharge Summary Reason For Visit: RIGHT FOOT DROP Current Active Problems Foot drop, right (Acute) Procedures: Principal: R L4-5 Laminectomies, medial facetectomy, discectomy Hospital Course: Improving pain and strength; completed iv abx 24 hours post-op Condition: Stable - Instructions Diet, Activity, Other Instructions: Post-op Instructions Diet: Diabetic Activity:May shower but keep incision line dry. Change dressing afterwards Restrictions: Do not lift anything over 10lbs. Additional Instructions: Keep incision line clean and dry. Change dressing daily. Report any chills, fever (100 or greater), any wound drainage, or any neurological changes to Dr. Marroquin. Do not drive for two weeks. Initial post-op appt: Call Dr Marroquin's office [phone] to be seen in 2 weeks Disposition: VNS/HOME HEALTH CARE - Home Medications Comprehensive Discharge Medication List: Ambulatory Orders Metformin HCl 500 mg PO DAILY 05/27/17 Metformin HCl [Glucophage] 1,000 mg PO HS 05/27/17 Oxycodone HCl 5 mg PO QID PRN #56 capsule MDD 4 05/30/17
--- NOTE | 2017-05-30 13:49 | PN ---
Progress Note, Physician Chief Complaint: feels better, walked with PT rehab less pin, R foot stronger - Current Medication List Current Medications: Active Medications Diazepam (Valium -) 5 mg PO Q8H [facility] Last Admin: 05/30/17 10:11 Dose: 5 mg Docusate Sodium (Colace -) 100 mg PO TID [facility] Last Admin: 05/30/17 13:32 Dose: 100 mg Glimepiride (Amaryl -) 1 mg PO DAILY@0700 [facility] Last Admin: 05/30/17 07:03 Dose: 1 mg Glimepiride (Amaryl -) 2 mg PO DAILY@1700 [facility] Last Admin: 05/29/17 17:21 Dose: 2 mg Potassium Chloride/Dextrose/Sod Cl (D5-1/2ns+20 Meq Kcl -) 1,000 mls @ 100 mls/ hr IV ASDIR [facility] Last Admin: 05/29/17 18:31 Dose: 100 mls/hr Insulin Aspart (Novolog Vial Sliding Scale -) 1 vial SQ ACHS [facility] PRN Reason: Protocol Last Admin: 05/30/17 11:43 Dose: 2 units Metformin HCl (Glucophage -) 500 mg PO ACBK [facility] Last Admin: 05/30/17 07:04 Dose: 500 mg Metformin HCl (Glucophage -) 1,000 mg PO ACDIN [facility] Last Admin: 05/29/17 17:22 Dose: 1,000 mg Oxycodone HCl (Roxicodone -) 5 mg PO Q4H PRN PRN Reason: PAIN Last Admin: 05/30/17 10:55 Dose: 5 mg - Objective Vital Signs: Vital Signs Temperature 98.2 F 05/30/17 08:10 Pulse Rate 81 05/30/17 08:10 Respiratory Rate 18 05/30/17 08:10 Blood Pressure 96/49 05/30/17 08:10 O2 Sat by Pulse Oximetry (%) 98 05/29/17 21:00 Constitutional: Yes: No Distress, Calm Eyes: Yes: Conjunctiva Clear HENT: Yes: Atraumatic Neck: Yes: Supple Cardiovascular: Yes: Regular Rate and Rhythm Respiratory: Yes: CTA Bilaterally Gastrointestinal: Yes: Soft. No: Distention, Tenderness Musculoskeletal: No: Joint Stiffness, Joint Swelling Extremities: No: Cold, Cool, Cyanosis Edema: No Integumentary: No: Rash, Venous Stasis Changes Neurological: Yes: WNL, Alert, Oriented ...Motor Strength: WNL Psychiatric: Yes: WNL, Alert, Oriented. No: Agitated Labs: CBC, BMP 05/30/17 07:00 05/30/17 07:00 INR, PTT INR 1.01 (0.82-1.09) 05/27/17 14:35 - ....Imaging Other: Report Reviewed Assessment/Plan Patient is a 46F with history of non insulin dependent diabetes admitted with LBP and a right foot drop for the past couple of weeks. s/p emergent laminectomy BGM control; sq insulin per sliding scale pain meds stools softeners incentive spirometry falls DVT pfx PT per NS no smoking; weight loss; DC home per NS f/u with PCP and NS in 1-2 weeks d/w pt
== END 2017-05-30 14:23 | disposition home health service (06) | DRG 520 ==
LOC: JER 12:33 → JOR 15:38 → JER 15:38 → UNDOADMIN 16:02 → JERBED 16:02 → JASUSAT 16:02 → J8W 20:25 → JASUSAT 20:26
PROVIDERS: ADMIT Neurological Surgery; ATTEND Neurological Surgery
PROC: 01NB0ZZ Release Lumbar Nerve, Open Approach (ICD-10-PCS; 2017-05-27)
PROC: 0SB20ZZ Excision of Lumbar Vertebral Disc, Open Approach (ICD-10-PCS; principal; 2017-05-27 14:00)
DX: M51.17 Intervertebral disc disorders with radiculopathy, lumbosacral region (principal); M21.371 Foot drop, right foot; E11.9 Type 2 diabetes mellitus without complications; Z79.84 Long term (current) use of oral hypoglycemic drugs; F17.210 Nicotine dependence, cigarettes, uncomplicated; R11.0 Nausea
CPT/HCPCS: 36415; 71010-TC; 72020-TC; 80048; 80053; 81003; 81015; 83036; 84703; 85025; 85027; 85610; 86850; 86900; 86901; 88304-TC; 93005; 93010; 94010; 94760; 97116-GP; 97161-GP; 99284-25

== ENCOUNTER 2017-06-11 21:07 | Inpatient (IN) | payer BC ==
--- NOTE | 2017-06-11 21:26 | PDOC ---
History of Present Illness - General History Source: Patient <JoshDavid - Last Filed: 06/11/17 21:30> - General History Source: Patient Exam Limitations: No Limitations - History of Present Illness Initial Comments: 06/11/17 21:45 The patient is a 46 year old female, with significant past medical history of laminectomy (2 weeks ago) and NIDDM, who was sent into the emergency room by Dr. Angelo Marroquin who performed her laminectomy on 05/27/17. The patient got her brooke removed today in Dr. Little office and noticed that there was oozing from the wound site. She called Dr. Marroquin this evening and stated that the wound started oozing even more than it was during the office visit. He requested that the patient be admitted for exploration of the wound in the OR tomorrow morning. Denies fever, chills, nausea, vomiting. Denies chest pain, SOB. Neurosurgeon: Dr. Jose Martin Marroquin <Raquel Caldwell - Last Filed: 06/11/17 23:34> - General Chief Complaint: Wound Stated Complaint: OOZING Time Seen by Provider: 06/11/17 21:26 Past History - Past Medical History Diabetes: Yes - Surgical History Neurologic Surgery: No - Psycho/Social/Smoking Cessation Hx Suicidal Ideation: No Smoking History: Current every day smoker Have you smoked in the past 12 months: No Number of Cigarettes Smoked Daily: 5 Information on smoking cessation initiated: No 'Breaking Loose' booklet given: 05/27/17 Hx Alcohol Use: No Drug/Substance Use Hx: No Substance Use Type: None Hx Substance Use Treatment: No <David Moreno - Last Filed: 06/11/17 21:30> <Raquel Caldwell - Last Filed: 06/11/17 23:34> - Past Medical History Allergies/Adverse Reactions: Allergies Allergy/AdvReac Type Severity Reaction Status Date / Time No Known Allergies Allergy Verified 06/11/17 21:12 Home Medications: Ambulatory Orders Metformin HCl 500 mg PO DAILY 05/27/17 Metformin HCl [Glucophage] 1,000 mg PO HS 05/27/17 Oxycodone HCl 5 mg PO QID PRN #56 capsule MDD 4 05/30/17 Glimepiride [Amaryl -] 2 mg PO HS 06/11/17 Glimepiride [Amaryl] 1 mg PO AM 06/11/17 Review of Systems - Review of Systems Able to Perform ROS?: Yes Comments:: 06/11/17 21:45 CONSTITUTIONAL: Absent: fever, no chills, no fatigue EYES: Absent: visual changes ENT: Absent: ear pain, no sore throat CARDIOVASCULAR: Absent: chest pain, no palpitations RESPIRATORY: Absent: cough, no SOB GI: Absent: abdominal pain, no nausea, no vomiting, no constipation, no diarrhea GENITOURINARY: Absent: dysuria, no frequency, no hematuria MUSCULOSKELETAL: Absent: back pain, no arthralgia, no myalgia SKIN: Present: oozing from the surgical incision site Absent: rash <Raquel Caldwell - Last Filed: 06/11/17 23:34> *Physical Exam - Vital Signs Last Vital Signs Temp Pulse Resp BP Pulse Ox 98.3 F 89 19 110/72 97 06/11/17 21:12 06/11/17 21:12 06/11/17 21:12 06/11/17 21:12 06/11/17 21:12 <David Moreno - Last Filed: 06/11/17 21:30> - Vital Signs Last Vital Signs Temp Pulse Resp BP Pulse Ox 98.3 F 89 19 110/72 97 06/11/17 21:12 06/11/17 21:12 06/11/17 21:12 06/11/17 21:12 06/11/17 21:12 - Physical Exam Comments: 06/11/17 21:45 GENERAL: Well-appearing, well-nourished. No apparent distress. HEENT: Normocephalic, atraumatic. PERRL, EOM intact. CARDIOVASCULAR: Normal S1, S2. Regular rate and rhythm. PULMONARY: Clear to auscultation bilaterally. ABDOMEN: Soft, non-distended, non-tender. EXTREMITIES: Normal ROM in all four extremities. No gross deformities. SKIN: +wound site is oozing yellow serous fluid as you can see through the bandage that appears there. There is no surrounding erythema and the area is nontender. NEUROLOGICAL: No focal neurological deficits. <Raquel Caldwell - Last Filed: 06/11/17 23:34> Heart Score/ECG Review #1 General ECG Interpretation: Sinus Rhythm 06/11/17 22:09 Normal sinus rhythm at a rate of 83bpm <Raquel Caldwell - Last Filed: 06/11/17 23:34> ED Treatment Course - LABORATORY CBC & Chemistry Diagram: 06/11/17 21:44 06/11/17 21:44 - RADIOLOGY Radiograph Interpretation: 06/11/17 23:34 EXAM#: TYPE/EXAM: RESULT: [id number] CT/LUMBAR SPINE CT W/O CONTRAST LUMBAR SPINE CT (without contrast) Clinical information given: assess fluid collection right L4-L5 The exam consists of contiguous direct transaxial images as well as reformatted sagittal and coronal imaging. In comparison to a lumbar spine MRI study of 05/22/2017 the patient is status post interval right L4 laminectomy. Within the laminectomy defect there is nonspecific fluid accumulation which extends posteriorly along the right lateral border of the L4 spinous process with apparent communication with a subcutaneous fluid collection measuring 4.7 x 4 x 4 cm. No gross intraspinal extension is seen on the basis of this noncontrast exam. Focal increased soft tissue density is noted within the central/right paramedian aspect of the anterior epidural space at the L4-L5 disc level. Moderate to marked L5-S1 degenerative disc space narrowing with associated degenerative intradiscal air/gas. Mild multilevel spondylosis. Minimal L2-L3 and L3-L4 degenerative retrolisthesis. Moderate to marked right L5-S1 and moderate left L5-S1 foraminal stenoses secondary to disc space narrowing with spondylosis. Mild bilateral L5-S1 degenerative facet arthropathy. There is partial imaging of marked bilateral T11-T12 facet arthropathy. IMPRESSION: Status post right L4 laminectomy. Nonspecific fluid accumulation is seen within the right L4 laminectomy defect and extending posteriorly into right L4 paraspinal region and along the midline of the subcutaneous region. Focal increased soft tissue density is seen within the anterior epidural space in a central/right paramedian location of the L4-5 disc level which could represent a recurrent disc herniation versus postsurgical change. MRI evaluation may be considered. Reported By: Santos Loredo MD 06/11/17 [id number] <Raquel Caldwell - Last Filed: 06/11/17 23:34> Medical Decision Making - Medical Decision Making 06/11/17 21:45 Dr. Jose Martin Marroquin was paged via [employer] at 9:45pm. 06/11/17 22:06 Dr. Marroquin called back and spoke with Dr. Moreno. <Raquel Caldwell - Last Filed: 06/11/17 23:34> *DC/Admit/Observation/Transfer - Discharge Dispostion Admit: Yes <David Moreno - Last Filed: 06/11/17 21:30> - Attestations Scribe Attestion: 06/11/17 21:46 Documentation prepared by FUNMI Doty, acting as medical office representative for David Moreno MD. <Raquel Caldwell - Last Filed: 06/11/17 23:34> Diagnosis at time of Disposition: Wound drainage
[2017-06-11 21:28] VITALS: BMI 36.0
[2017-06-11 21:58] LABS: BASOPHIL 1.2 % (0-2.0); EOSINOPHIL 1.6 % (0-4.5); MCH 27.3 pg (25.7-33.7); MCHC 33.5 g/dl (32.0-36.0); MEAN CELL VOLUME 81.6 fl (80-96); MEAN PLT VOLUME 10.2 fl (7.5-11.1); PLATELET COUNT 277 K/MM3 (134-434); RDW 13.6 % (11.6-15.6); WHITE BLOOD COUNT 12.9 K/mm3 (4.0-10.0)
[2017-06-11 21:59] LABS: URINE APPEARANCE SLCLOUDY; URINE BILIRUBIN NEGATIVE (NEGATIVE); URINE BLOOD 1+ (NEGATIVE); URINE COLOR YELLOW; URINE GLUCOSE (UA) 3+ (NEGATIVE); URINE KETONE TRACE (NEGATIVE); URINE LEUK ESTERASE NEGATIVE (NEGATIVE); URINE NITRITE NEGATIVE (NEGATIVE); URINE PROTEIN NEGATIVE (NEGATIVE); URINE UROBILINOGEN NEGATIVE mg/dL (0.2-1.0)
[2017-06-11 22:07] LABS: INR 1.03 (0.82-1.09); PROTHROMBIN TIME (PATIENT) 11.3 SEC (9.98-11.88)
--- NOTE | 2017-06-11 22:07 | PN ---
Progress Note (short form) - Note Progress Note: NEUROSURGERY Pt known to me S/p R L4-5 laminectomies and microdiscectomy for R foot drop 2 weeks ago Sciatica and R foot drop improved after surgery No fever/chill, no headaches, no N/V Seen earlier in my office for suture removal Developed brownish clear wound drainage from the bottom of incision which stopped after being cleaned with betadine and steri-strips applied; observed in the office for 2 hours without drainage 4 hours later developed recurrent drainage Pt instructed to come to the ER to be admitted for OR exploration She had eaten dinner and will be operated on in AM PE: (earlier this afternoon); Now T 98.3, 110/72 CV- RRR; Lungs- CTA; Abd- mildly obese but benign; Ext- no sign of DVT CN- intact II-XII; Motor: 5/5 except R EHL/TA 3/5 and R in/iv 4-; Sensation- slightly decreased R L4/5/S1; DTR- intact WBC 12.0; Hgn 12.8; platelet 177K; CMET pending R/o infection (given DM) r/o CSF fistula Stat non-contrast LS spine CT to assess anatomy T & S Pre-op CXR/EKG NPO after MN OR for exploration in AM D/w Dr Moreno D/w anesthesia and OR team Pt aware of recommendations as outlined
[2017-06-11 22:16] LABS: URINE BACTERIA RARE /hpf (NONE SEEN); URINE MUCUS FEW; URINE RBC 1 /hpf (0-3); URINE WBC 1 /hpf (3-5)
[2017-06-11 22:26] LABS: ALBUMIN 3.5 g/dl (3.4-5.0); ALK PHOS 57 U/L (45-117); ANION GAP 7 (8-16); BILIRUBIN,TOTAL 0.2 mg/dL (0.2-1.0); CALCIUM 9.3 mg/dL (8.5-10.1); CO2 28 mmol/L (21-32); CREATININE 0.8 mg/dL (0.55-1.02); GLUCOSE,RANDOM 268 mg/dL (74-106); SGOT/AST 7 U/L (15-37); SGPT/ALT 23 U/L (12-78)
[2017-06-11] MEDS ORDERED: ACETAMINOPHEN 325 MG TABLET (FP) PO PRN (23:25)
[2017-06-11] MEDS ORDERED: oxyCODONE HCL 5 MG TABLET PO PRN (23:25)
[2017-06-11] MEDS ORDERED: DEXTROSE 5%-0.45% SALINE 1,000 ML IV SCH (23:30)
[2017-06-12] MEDS ORDERED: GLIMEPIRIDE 1 MG TABLET (FP) PO SCH (07:00)
[2017-06-12] MEDS ORDERED: metFORMIN HCL 500 MG TABLET (FP) PO SCH ×2 (07:00→16:30)
--- NOTE | 2017-06-12 08:10 | PN ---
Progress Note (short form) - Note Progress Note: NEUROSURGERY S/p R L4-5 laminectomies and microdiscectomy for R foot drop 2 weeks ago Initial improvement; noted slightly less flexibility R foot the last few days PE: AF, VSS CV- RRR; Lungs- CTA; Abd- mildly obese but benign; Ext- no sign of DVT Dressing with mild drainage on bottom CN- intact II-XII; Motor: 5/5 except R EHL/TA 3/5 and R in/iv 4-; Sensation- slightly decreased R L4/5/S1; DTR- intact WBC 12.7; Hgb 12.8; platelet 177K; Na 136; BUN 16, Cr 0.8; glucose 268, FS now [address]- R L4 laminectomy defect; fluid tracking up to subcutaneous midline ; R L4-5 anterior epidural density possible recurrent HNP R/o infection (given DM) r/o CSF fistula OR for exploration, lumbar drain, and all indicated procedures D/w anesthesia and OR team re: OR setup and equipment Pt aware of recommendations and consented for surgery Alternatives, risks (bleeding, infection, CSF, nerve injury, anesthesia, DVT/PE ) and benefits explained Post-op bed rest x [address] hours when drain in place planned Sliding scale ordered as well All questions answered
[2017-06-12] MEDS ORDERED: MIDAZOLAM HCL 2 MG/2 ML SINGLE DOSE VIAL ONE (09:50)
[2017-06-12] MEDS ORDERED: ROCURONIUM BROMIDE 50 MG/5 ML VIAL ONE (09:50)
[2017-06-12] MEDS ORDERED: SUCCINYLCHOLINE CHLORIDE 200 MG/10 ML VIAL ONE (09:50)
[2017-06-12] MEDS ORDERED: PROPOFOL 20 ML ONE (09:52)
[2017-06-12] MEDS ORDERED: THROMBIN (BOVINE) 5,000 UNIT VIAL TP ONE (10:26)
[2017-06-12] MEDS ORDERED: BACITRACIN 15 GM TUBE TOPICAL OINTMENT ONE (10:28)
[2017-06-12] MEDS ORDERED: BUPIVACAINE HCL/PF 0.5% (5MG/ML) 10 ML VIAL ONE (10:28)
--- NOTE | 2017-06-12 10:45 | EKG ---
Test Reason : Blood Pressure : / mmHG Vent. Rate : 083 BPM Atrial Rate : 083 BPM P-R Int : 134 ms QRS Dur : 084 ms QT Int : 368 ms P-R-T Axes : 035 030 029 degrees QTc Int : 432 ms NORMAL SINUS RHYTHM POSSIBLE LEFT ATRIAL ENLARGEMENT BORDERLINE ECG WHEN COMPARED WITH ECG OF 27-MAY-2017 14:58, NO SIGNIFICANT CHANGE WAS FOUND Confirmed by JEM MCHUGH MD ([id number]) on 06/12/2017 10:45:24 AM Referred By: Confirmed By:JEM MCHUGH MD
[2017-06-12] MEDS ORDERED: ceFAZolin SODIUM 1 GM VIAL IVPB ONE (11:03)
[2017-06-12] MEDS ORDERED: ceFAZolin SODIUM 1 GM VIAL ONE (11:05)
[2017-06-12] MEDS ORDERED: DEXAMETHASONE SOD PHOSPHATE 4 MG/1 ML VIAL ONE (11:05)
[2017-06-12] MEDS: INSULIN SLIDING SCALE (NOVOLOG) 1 VIAL SQ SCH ×3 (11:24→21:52)
[2017-06-12] MEDS ORDERED: BACITRACIN 50,000 UNITS VIAL TP ONE (11:50)
[2017-06-12] MEDS ORDERED: BACITRACIN 15 GM TUBE TOPICAL OINTMENT TP ONE (13:00)
[2017-06-12] MEDS ORDERED: ONDANSETRON 4 MG/2 ML VIAL IVPB PRN (13:02)
--- NOTE | 2017-06-12 13:14 | OP ---
Operative Note - Note: Operative Date: 06/12/17 Pre-Operative Diagnosis: Recurrent HNP, CSF fistula Operation: Redo-expansion R L4 and L5 hemilaminectomies, microdiscectomy, repair CSF fistula, microdissection; CSF lumbar drain placement Findings: CSF fistula anteriorly; 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 with thecal sac and root impingement R L4-5 Surgeon: Jose Martin Marroquin Modeling And Simulation Analyst: Joanne Tsang Anesthesiologist/POLISH COMPOUNDER: Jaden Benitez Anesthesia: General Specimens Removed: paraspinel fluid for culture; CSF for glucose,protein,cell count,gram stain,culture Estimated Blood Loss (mls): 10 Drains & Tubes with Location: lumbar CSF drain to measurement device/bag
[2017-06-12] MEDS ORDERED: PROMETHAZINE HCL 25 MG/1 ML VIAL IVPUSH PRN (13:26)
--- NOTE | 2017-06-12 13:37 | SURG ---
Surgery Hr Assistant Note Hr Assistant: Joanne Tsang PA-C Date of Service: 06/12/17 Diagnosis: Recurrent HNP, CSF fistula Procedure: Redo-expansion R L4 and L5 hemilaminectomies, microdiscectomy, repair CSF fistula, microdissection; CSF lumbar drain placement I was present for the entirety of the operative procedure. For further detail, please refer to operative report. Visit type - Case Type Case Type: ED Admission - Emergency Emergency Visit: Yes ED Registration Date: 06/11/17 Care time: The patient presented to the Emergency Department on the above date and was hospitalized for further evaluation of their emergent condition. - New patient This patient is new to me today: Yes Date on this admission: 06/12/17 - Critical Care Critical Care patient: No
[2017-06-12] MEDS ORDERED: HYDROmorphone HCL CARPU-JECT 2 MG/1 ML DISP.SYRIN ONE (13:39)
[2017-06-12] MEDS: HYDROmorphone HCL CARPU-JECT 1 MG/1 ML DISP.SYRIN IVPUSH PRN ×2 (13:40→13:50)
--- NOTE | 2017-06-12 13:46 | PN ---
Progress Note (short form) - Note Progress Note: NEUROSURGERY In PACU PE: AF, VSS O2 sat 100% CV- RRR; Lungs- CTA; Abd- mildly obese but benign; Ext- no sign of DVT Dressing with mild drainage on bottom CN- intact II-XII; Motor: 5/5 except R EHL/TA 3-/5 and R in/iv 4- (improved); Sensation- slightly decreased R L5/S1; DTR- intact Lumbar drain working Post-op bed rest x 48 hours when drain in place planned CSF drain 10 cc/hr, reviewed with PA and RN's Sliding scale ordered as well Findings d/w pt and family
[2017-06-12 13:54] LABS: CSF APPEARANCE CLEAR; CSF COLOR COLORLESS; CSF RBC 1
[2017-06-12 14:31] LABS: GLUCOSE,CSF 94 mg/dL (50-80)
[2017-06-12 15:16] LABS: MCH 27.4 pg (25.7-33.7); MCHC 33.2 g/dl (32.0-36.0); MEAN CELL VOLUME 82.4 fl (80-96); MEAN PLT VOLUME 10.4 fl (7.5-11.1); PLATELET COUNT 249 K/MM3 (134-434); WHITE BLOOD COUNT 10.5 K/mm3 (4.0-10.0)
[2017-06-12 15:23] LABS: ALBUMIN 3.2 g/dl (3.4-5.0); ALK PHOS 56 U/L (45-117); ANION GAP 9 (8-16); BILIRUBIN,TOTAL 0.3 mg/dL (0.2-1.0); CALCIUM 8.8 mg/dL (8.5-10.1); CO2 26 mmol/L (21-32); CREATININE 0.8 mg/dL (0.55-1.02); GLUCOSE,RANDOM 186 mg/dL (74-106); SGOT/AST 7 U/L (15-37); SGPT/ALT 18 U/L (12-78); TOT PROT 6.3 g/dl (6.4-8.2)
[2017-06-12] MEDS ORDERED: HYDROmorphone HCL CARPU-JECT 1 MG/1 ML DISP.SYRIN IVPB PRN (16:02)
[2017-06-12] MEDS ORDERED: GLIMEPIRIDE 2 MG TABLET (FP) PO SCH ×2 (16:30→22:00)
[2017-06-12] MEDS: DOCUSATE SODIUM 100 MG CAPSULE (FP) PO SCH ×2 (16:40→21:13)
[2017-06-12] MEDS: diazePAM 5 MG TABLET PO SCH ×2 (16:40→20:43)
[2017-06-12] MEDS ORDERED: DEXTROSE 5%-0.45% SALINE 1,000 ML IV SCH (18:38)
[2017-06-12] MEDS ORDERED: oxyCODONE HCL 5 MG TABLET PO PRN (18:38)
[2017-06-12] MEDS: CEFAZOLIN 1 GM/D5W 50 ML IVPB SCH (18:47)
[2017-06-12] MEDS ORDERED: HYDROmorphone HCL CARPU-JECT 1 MG/1 ML DISP.SYRIN IVPUSH PRN (19:04)
--- NOTE | 2017-06-12 20:27 | CONSULT ---
Consult Consult Specialty:: Pulm/CCM Reason for Consultation:: Lumbar epidural collection s/p drainage - History of Present Illness Chief Complaint: Post-op lumbar discomfort History of Present Illness: 46 yonathan with PMHx NIDDM, herniated lumbar disc s/p laminectomy 05/27/17 who was sent to the ER by Dr. Angelo Marroquin who performed her laminectomy d/t drainage from surgical site and recurrent numbness in rt foot. She is now s/p drainage of epidural collection and is admitted to ICU for post-op care. In ICU rec'd A+O x3, no c/o pain HR 71, BP 100/54, o2 sat 100% on 2L NC O2; lumbar drain in place and intact and being drained q1h, 10cc. States that Rt foot numbness is improved. JARRED. - History Source History Provided By: Patient, Medical Record - Past Medical History ...LMP: 05/30/17 ...: No Endocrine: Yes: Diabetes Mellitus - Past Surgical History Past Surgical History: Yes: Laminectomy - Alcohol/Substance Use Hx Alcohol Use: No History of Substance Use: reports: None - Smoking History Smoking history: Current every day smoker Have you smoked in the past 12 months: No Aproximately how many cigarettes per day: 5 - Social History ADL: Independent Occupation: front office clerk History of Recent Travel: No Home Medications - Allergies Allergies/Adverse Reactions: Allergies Allergy/AdvReac Type Severity Reaction Status Date / Time No Known Allergies Allergy Verified 06/11/17 21:12 - Home Medications Home Medications: Ambulatory Orders Metformin HCl 500 mg PO DAILY 05/27/17 Metformin HCl [Glucophage] 1,000 mg PO HS 05/27/17 Oxycodone HCl 5 mg PO QID PRN #56 capsule MDD 4 05/30/17 Glimepiride [Amaryl -] 2 mg PO HS 06/11/17 Glimepiride [Amaryl] 1 mg PO AM 06/11/17 Physical Exam Vital Signs: Vital Signs Temperature 98.3 F 06/12/17 19:06 Pulse Rate 72 06/12/17 18:30 Respiratory Rate 16 06/12/17 18:30 Blood Pressure 92/66 06/12/17 18:30 O2 Sat by Pulse Oximetry (%) 100 06/12/17 16:00 Constitutional: Yes: No Distress, Calm, Other (overweight) Eyes: Yes: WNL, PERRL HENT: Yes: Normocephalic Neck: Yes: Supple Cardiovascular: Yes: Regular Rate and Rhythm Respiratory: Yes: Regular, CTA Bilaterally Gastrointestinal: Yes: Normal Bowel Sounds, Soft ...Rectal Exam: Yes: WNL Renal/: Yes: Lares Present Musculoskeletal: Yes: WNL Extremities: Yes: WNL Edema: No Peripheral Pulses WNL: Yes Integumentary: Yes: WNL Wound/Incision: Yes: Dressing Dry and Intact, Other (Epidural drain to bag intact) Neurological: Yes: Alert, Oriented ...Motor Strength: WNL Psychiatric: Yes: Alert, Oriented Labs: CBC, BMP 06/12/17 13:45 06/12/17 13:45 CBC,CMP WBC 10.5 K/mm3 (4.0-10.0) H 06/12/17 13:45 RBC 4.57 M/mm3 (3.60-5.2) 06/12/17 13:45 Hgb 12.5 GM/dL (10.7-15.3) 06/12/17 13:45 Hct 37.6 % (32.4-45.2) 06/12/17 13:45 MCV 82.4 fl (80-96) 06/12/17 13:45 MCH 27.4 pg (25.7-33.7) 06/12/17 13:45 MCHC 33.2 g/dl (32.0-36.0) 06/12/17 13:45 RDW 14.0 % (11.6-15.6) 06/12/17 13:45 Plt Count 249 K/MM3 (134-434) 06/12/17 13:45 MPV 10.4 fl (7.5-11.1) 06/12/17 13:45 Neutrophils % 63.0 % (42.8-82.8) 06/11/17 21:44 Lymphocytes % 28.7 % (8-40) 06/11/17 21:44 Monocytes % 5.5 % (3.8-10.2) 06/11/17 21:44 Eosinophils % 1.6 % (0-4.5) 06/11/17 21:44 Basophils % 1.2 % (0-2.0) 06/11/17 21:44 Sodium 139 mmol/L (136-145) 06/12/17 13:45 Potassium 4.4 mmol/L (3.5-5.1) 06/12/17 13:45 Chloride 104 mmol/L (98-107) 06/12/17 13:45 Carbon Dioxide 26 mmol/L (21-32) 06/12/17 13:45 Anion Gap 9 (8-16) 06/12/17 13:45 BUN 12 mg/dL (7-18) D 06/12/17 13:45 Creatinine 0.8 mg/dL (0.55-1.02) 06/12/17 13:45 Creat Clearance w eGFR > 60 (>60) 06/12/17 13:45 POC Glucometer 197 UNITS (()) 06/12/17 14:30 Random Glucose 186 mg/dL (74-106) H D 06/12/17 13:45 Calcium 8.8 mg/dL (8.5-10.1) 06/12/17 13:45 Total Bilirubin 0.3 mg/dL (0.2-1.0) D 06/12/17 13:45 AST 7 U/L (15-37) L 06/12/17 13:45 ALT 18 U/L (12-78) D 06/12/17 13:45 Alkaline Phosphatase 56 U/L (45-117) 06/12/17 13:45 Total Protein 6.3 g/dl (6.4-8.2) L 06/12/17 13:45 Albumin 3.2 g/dl (3.4-5.0) L 06/12/17 13:45 Current Medications Acetaminophen (Tylenol -) 325 mg PO Q4H PRN PRN Reason: PAIN Stop: 06/14/17 23:24 Diazepam (Valium -) 5 mg PO Q8H [facility] Last Admin: 06/12/17 16:40 Dose: Not Given Docusate Sodium (Colace -) 100 mg PO TID [facility] Last Admin: 06/12/17 16:40 Dose: Not Given Glimepiride (Amaryl -) 1 mg PO DAILY@0700 [facility] Glimepiride (Amaryl -) 2 mg PO DAILY@1630 [facility] Hydromorphone HCl (Dilaudid Injection -) 0.5 mg IVPUSH [id number] PRN PRN Reason: PAIN Stop: 06/15/17 13:27 Last Admin: 06/12/17 13:50 Dose: 0.5 mg Hydromorphone HCl (Dilaudid Injection -) 1 mg IVPUSH Q3H PRN PRN Reason: PAIN Cefazolin Sodium (Ancef 1 Gm Premixed Ivpb -) 50 mls @ 100 mls/hr IVPB Q8H-IV [facility] Stop: 06/13/17 02:29 Last Admin: 06/12/17 18:47 Dose: 100 mls/hr Dextrose/Sodium Chloride (D5-1/2ns -) 1,000 mls @ 100 mls/hr IV ASDIR [facility] Insulin Aspart (Novolog Vial Sliding Scale -) 1 vial SQ ACHS [facility] PRN Reason: Protocol Metformin HCl (Glucophage -) 500 mg PO AM [facility] Metformin HCl (Glucophage -) 1,000 mg PO DAILY@1630 [facility] Ondansetron HCl (Zofran Injection) 4 mg IVPB Q6H PRN PRN Reason: NAUSEA AND/OR VOMITING Oxycodone HCl (Roxicodone -) 5 mg PO Q4H PRN PRN Reason: PAIN Oxycodone HCl (Roxicodone -) 5 mg PO QID PRN PRN Reason: PAIN LEVEL 6-10 Imaging - Results Cat Scan: Report Reviewed Problem List - Problems (1) Wound drainage Code(s): T14.8 - OTHER INJURY OF UNSPECIFIED BODY REGION (2) Foot drop, right Code(s): M21.371 - FOOT DROP, RIGHT FOOT Assessment/Plan 46yow with PMHx DMII and s/p laminectomy and discectomy for foot drop c/b wound drainage and epidural collection now s/p drainage of epidural collection. Plan: -Activity as per neurosurgery-flat position for 48hrs; allowed side to side turn -Drain epidural fluid 10cc/h as per neurosurgery -Assess BLE sensation and movement q2h -lares cath d/t activity restriction -IS -IV hydration -Clears -Fingersticks AC&HS; continue metformin -DVT proph-SCDs
[2017-06-12] MEDS ORDERED: SODIUM CHLORIDE 0.45% 1,000 ML IV SCH (21:00)
[2017-06-12] MEDS ORDERED: INSULIN (NOVOLOG) ASPART 100 UNITS/ML 10ML VIAL ONE (21:49)
[2017-06-12] MEDS ORDERED: PATIENT'S OWN MEDICATION (NON-FORMULARY) (Metformin Hcl [Glucophage] 1,000 MG) PO SCH (22:00)
[2017-06-12] MEDS ORDERED: SODIUM CHLORIDE 1,000 ML IV SCH (22:00)
[2017-06-13] MEDS: CEFAZOLIN 1 GM/D5W 50 ML IVPB SCH (02:10)
[2017-06-13] MEDS: diazePAM 5 MG TABLET PO SCH ×4 (05:17→22:27)
[2017-06-13] MEDS: DOCUSATE SODIUM 100 MG CAPSULE (FP) PO SCH ×3 (05:17→21:36)
[2017-06-13] MEDS: GLIMEPIRIDE 1 MG TABLET (FP) PO SCH ×2 (06:31→06:38)
[2017-06-13] MEDS: metFORMIN HCL 500 MG TABLET (FP) PO SCH ×2 (06:31→16:27)
[2017-06-13] MEDS: INSULIN SLIDING SCALE (NOVOLOG) 1 VIAL SQ SCH ×4 (06:32→21:35)
--- NOTE | 2017-06-13 07:36 | PN ---
Physical Exam: SUBJECTIVE: Patient seen and examined OBJECTIVE: Vital Signs Period Temp Pulse Resp BP Sys/Navarro Pulse Ox Last 24 Hr 98 F-98.7 F 56-94 12-20 91-125/50-71 99-100 Constitutional: Yes: No Distress, Calm, Other (overweight) Eyes: Yes: WNL, PERRL HENT: Yes: Normocephalic Neck: Yes: Supple Cardiovascular: Yes: Regular Rate and Rhythm Respiratory: Yes: Regular, CTA Bilaterally Gastrointestinal: Yes: Normal Bowel Sounds, Soft ...Rectal Exam: Yes: WNL Renal/: Yes: Lares Present Musculoskeletal: Yes: WNL Extremities: Yes: WNL Edema: No Peripheral Pulses WNL: Yes Integumentary: Yes: WNL Wound/Incision: Yes: Dressing Dry and Intact, Other (Epidural drain to bag intact) Neurological: Yes: Alert, Oriented ...Motor Strength: WNL Psychiatric: Yes: Alert, Oriented Intake & Output 06/10/17 06/11/17 06/12/17 06/13/17 23:59 23:59 23:59 23:59 Intake Total 3440 700 Output Total 1400 1380 Balance 2040 -680 Weight 104.326 kg 103.6 kg Laboratory Results - last 24 hr 06/11/17 06/12/17 06/12/17 21:44 13:00 13:45 WBC 10.5 H RBC 4.57 Hgb 12.5 Hct 37.6 MCV 82.4 MCH 27.4 MCHC 33.2 RDW 14.0 Plt Count 249 MPV 10.4 Sodium Potassium Chloride Carbon Dioxide Anion Gap BUN Creatinine Creat Clearance w eGFR POC Glucometer Random Glucose Calcium Total Bilirubin AST ALT Alkaline Phosphatase Total Protein Albumin Urine Color Yellow Urine Appearance Slcloudy Urine pH 6.0 Ur Specific [place] 1.025 Urine Protein Negative Urine Glucose (UA) 3+ H Urine Ketones Trace H Urine Blood 1+ H Urine Nitrite Negative Urine Bilirubin Negative Urine Urobilinogen Negative Urine RBC 1 Urine WBC 1 Ur Epithelial Cells Few Urine Bacteria Rare Urine Mucus Few CSF Appearance Clear CSF Color Colorless CSF WBC 3 CSF RBC 1 CSF Neutrophils Y CSF Glucose 94 H CSF Total Protein 33 06/12/17 06/12/17 13:45 14:30 WBC RBC Hgb Hct MCV MCH MCHC RDW Plt Count MPV Sodium 139 Potassium 4.4 Chloride 104 Carbon Dioxide 26 Anion Gap 9 BUN 12 D Creatinine 0.8 Creat Clearance w eGFR > 60 POC Glucometer 197 Random Glucose 186 H D Calcium 8.8 Total Bilirubin 0.3 D AST 7 L ALT 18 D Alkaline Phosphatase 56 Total Protein 6.3 L Albumin 3.2 L Urine Color Urine Appearance Urine pH Ur Specific [place] Urine Protein Urine Glucose (UA) Urine Ketones Urine Blood Urine Nitrite Urine Bilirubin Urine Urobilinogen Urine RBC Urine WBC Ur Epithelial Cells Urine Bacteria Urine Mucus CSF Appearance CSF Color CSF WBC CSF RBC CSF Neutrophils CSF Glucose CSF Total Protein Active Medications Generic Name Dose Route Start Last Admin Trade Name Freq PRN Reason Stop Dose Admin Acetaminophen 325 mg 06/12/17 18:38 Tylenol - PO 06/14/17 23:24 Q4H PRN PAIN Diazepam 5 mg 06/12/17 13:15 06/13/17 05:17 Valium - PO 5 mg Q8H [facility] Administration Docusate Sodium 100 mg 06/12/17 14:00 06/13/17 05:17 Colace - PO 100 mg TID [facility] Administration Glimepiride 1 mg 06/13/17 07:00 06/13/17 06:38 Amaryl - PO Not Given DAILY@0700 [facility] Glimepiride 2 mg 06/13/17 16:30 Amaryl - PO DAILY@1630 [facility] Hydromorphone HCl 1 mg 06/12/17 19:04 Dilaudid Injection - IVPUSH Q3H PRN PAIN Sodium Chloride 1,000 mls @ 50 mls/hr 06/12/17 22:00 06/12/17 21:53 Normal Saline - IV 06/13/17 21:48 50 mls/hr ASDIR [facility] Administration Insulin Aspart 1 vial 06/12/17 22:00 06/13/17 06:32 Novolog Vial Sliding Scale - SQ Not Given ACHS [facility] Protocol Metformin HCl 500 mg 06/13/17 07:00 06/13/17 06:31 Glucophage - PO Not Given AM [facility] Metformin HCl 1,000 mg 06/13/17 16:30 Glucophage - PO DAILY@1630 [facility] Ondansetron HCl 4 mg 06/12/17 13:02 Zofran Injection IVPB Q6H PRN NAUSEA AND/OR VOMITING Oxycodone HCl 5 mg 06/12/17 18:38 Roxicodone - PO Q4H PRN PAIN Oxycodone HCl 5 mg 06/12/17 18:38 Roxicodone - PO QID PRN PAIN LEVEL 6-10 ASSESSMENT/PLAN: 46 yo female, POD#1 Redo-expansion R L4 and L5 hemilaminectomies, microdiscectomy, repair CSF fistula, microdissection; CSF lumbar drain placement Surgical note:CSF fistula anteriorly; 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 with thecal sac and root impingement R L4-5 Plan: -Activity as per neurosurgery-flat position for 48hrs; allowed side to side turn -Pain control as needed (patient declining today) -Drain epidural fluid 10cc/h as per neurosurgery -Assess BLE sensation and movement q2h -lares cath d/t activity restriction -Incentive Spirometry -IV hydration -Diet to be advanced as tolerated, diabetic and resume oral diabetic medication - Since patient is fully supine, diet advanced to pureed and pudding consistencies to avoid aspiration, as per Diffusion Furnace Operator -DVT proph-SCDs Visit type - Emergency Visit Emergency Visit: No - New Patient This patient is new to me today: Yes Date on this admission: 06/13/17 - Critical Care Critical Care patient: Yes Total Critical Care Time (in minutes): 20
--- NOTE | 2017-06-13 08:23 | PN ---
Progress Note (short form) - Note Progress Note: ANESTHESIOLOGY POST-OP CHECK 46F s/p lumber re-exploration and repair of CSF fistula under general anesthesia , POD #1. No acute complaints. Pain 5/10 and tolerable. Tolerating clears, lares in place. Denies N/V. Vital Signs Temperature 98 F 06/13/17 08:01 Pulse Rate 68 06/13/17 08:01 Respiratory Rate 20 06/13/17 08:01 Blood Pressure 90/50 06/13/17 08:01 O2 Sat by Pulse Oximetry (%) 100 06/12/17 21:00 Active Medications Acetaminophen (Tylenol -) 325 mg PO Q4H PRN PRN Reason: PAIN Stop: 06/14/17 23:24 Diazepam (Valium -) 5 mg PO Q8H [facility] Last Admin: 06/13/17 05:17 Dose: 5 mg Docusate Sodium (Colace -) 100 mg PO TID [facility] Last Admin: 06/13/17 05:17 Dose: 100 mg Glimepiride (Amaryl -) 1 mg PO DAILY@0700 [facility] Last Admin: 06/13/17 06:38 Dose: Not Given Glimepiride (Amaryl -) 2 mg PO DAILY@1630 [facility] Hydromorphone HCl (Dilaudid Injection -) 1 mg IVPUSH Q3H PRN PRN Reason: PAIN Sodium Chloride (Normal Saline -) 1,000 mls @ 50 mls/hr IV ASDIR [facility] Stop: 06/13/17 21:48 Last Admin: 06/12/17 21:53 Dose: 50 mls/hr Insulin Aspart (Novolog Vial Sliding Scale -) 1 vial SQ ACHS [facility] PRN Reason: Protocol Last Admin: 06/13/17 06:32 Dose: Not Given Metformin HCl (Glucophage -) 500 mg PO AM [facility] Last Admin: 06/13/17 06:31 Dose: Not Given Metformin HCl (Glucophage -) 1,000 mg PO DAILY@1630 [facility] Ondansetron HCl (Zofran Injection) 4 mg IVPB Q6H PRN PRN Reason: NAUSEA AND/OR VOMITING Oxycodone HCl (Roxicodone -) 5 mg PO Q4H PRN PRN Reason: PAIN Oxycodone HCl (Roxicodone -) 5 mg PO QID PRN PRN Reason: PAIN LEVEL 6-10 Gen: Awake ,alert No apparent anesthesia complications. Paain controlled. Continue management as per primary team.
[2017-06-13] MEDS ORDERED: metFORMIN HCL 500 MG TABLET (FP) PO SCH (10:00)
--- NOTE | 2017-06-13 11:50 | PN ---
Teaching Attending Note Name of Resident: Humberto Okeefe ATTENDING PHYSICIAN STATEMENT I saw and evaluated the patient. I reviewed the resident's note and discussed the case with the resident. I agree with the resident's findings and plan as documented. SUBJECTIVE: Pt seen and examined in the ICU. Pain tolerable, reports abdominal pain as well which she states she gets with severe back pain. No fevers or chills. No nausea. OBJECTIVE: Last Vital Signs Temp Pulse Resp BP Pulse Ox 98.7 F 68 16 102/53 100 06/13/17 10:30 06/13/17 10:16 06/13/17 10:16 06/13/17 10:16 06/13/17 10:13 Intake & Output 06/10/17 06/11/17 06/12/17 06/13/17 23:59 23:59 23:59 23:59 Intake Total 3440 700 Output Total 1400 1420 Balance 2040 -720 Weight 230 lb 228 lb 6.4 oz 241 lb 9 oz Gen: NAD at rest Heart: RRR Lung: decreased breath sounds at the bases Abd: soft, nontender Ext: no edema CBC, BMP 06/12/17 13:45 06/12/17 13:45 Active Medications Acetaminophen (Tylenol -) 325 mg PO Q4H PRN PRN Reason: PAIN Stop: 06/14/17 23:24 Diazepam (Valium -) 5 mg PO Q8H [facility] Last Admin: 06/13/17 05:17 Dose: 5 mg Docusate Sodium (Colace -) 100 mg PO TID [facility] Last Admin: 06/13/17 05:17 Dose: 100 mg Glimepiride (Amaryl -) 1 mg PO DAILY@0700 [facility] Last Admin: 06/13/17 06:38 Dose: Not Given Glimepiride (Amaryl -) 2 mg PO DAILY@1630 [facility] Hydromorphone HCl (Dilaudid Injection -) 1 mg IVPUSH Q3H PRN PRN Reason: PAIN Sodium Chloride (Normal Saline -) 1,000 mls @ 50 mls/hr IV ASDIR [facility] Stop: 06/13/17 21:48 Last Admin: 06/12/17 21:53 Dose: 50 mls/hr Insulin Aspart (Novolog Vial Sliding Scale -) 1 vial SQ ACHS [facility] PRN Reason: Protocol Last Admin: 06/13/17 10:31 Dose: Not Given Metformin HCl (Glucophage -) 500 mg PO AM [facility] Last Admin: 06/13/17 06:31 Dose: Not Given Metformin HCl (Glucophage -) 1,000 mg PO DAILY@1630 [facility] Ondansetron HCl (Zofran Injection) 4 mg IVPB Q6H PRN PRN Reason: NAUSEA AND/OR VOMITING Oxycodone HCl (Roxicodone -) 5 mg PO Q4H PRN PRN Reason: PAIN Oxycodone HCl (Roxicodone -) 5 mg PO QID PRN PRN Reason: PAIN LEVEL 6-10 ASSESSMENT AND PLAN: CSF Leak/Fistula s/p Fistula repair/Lumbar Drain placement DM - pain control - flat position x 48hrs - drain per neurosurgery - PO as tolerated - incentive spirometry - DVT prophylaxis - continue ICU monitoring
--- NOTE | 2017-06-13 12:32 | OP ---
DATE OF OPERATION: 06/12/2017 PREOPERATIVE DIAGNOSES: 1. Recurrent right L4-L5 paracentral disk herniation. 2. Cerebrospinal fluid fistula. 3. Obesity with diabetes. POSTOPERATIVE DIAGNOSES: 1. Recurrent right L4-L5 paracentral disk herniation. 2. Cerebrospinal fluid fistula. 3. Obesity with diabetes. PROCEDURE PERFORMED: 1. Placement of lumbar therapeutic cerebrospinal fluid drain (64448). 2. Redo and expansion of prior right L4 and L5 laminectomies for excision of recurrent extruded disk herniation for decompression of thecal sac as well as right L4 and L5 nerve roots (06325, [id number]). 3. Microsurgical dissection with the operating microscope and microsurgical technique (93952). SURGEON: Jose Martin Marroqiun MD POLICE OFFICER: NORIS Steward ANESTHESIA: General endotracheal. ANESTHESIOLOGIST: Jaden Benitez MD ESTIMATED BLOOD LOSS: 10 mL. FINDINGS: 1. Extruded right-sided L4-L5 disk herniation with impingement of thecal sac and right L4 and L5 nerve roots. 2. Ventral CSF fistula. INDICATIONS: The patient is a 46-year-old female who had previously undergone right L4-L5 laminectomy and diskectomy for a subacute/acute foot drop. She improved initially after surgery, but about 10 days after surgery, her improvement stalled. She also developed a subcutaneous fluid collection. The day of admission, her lumbar sutures were removed and she subsequently developed significant drainage from her incision. She was admitted emergently, and a CT scan demonstrated an epidural and subcutaneous fluid collection, consistent with a CSF fistula. The patient denied any fever or chills, and had no other signs of infection. CT scan also demonstrated probable recurrent disk herniation. Because of her neurological symptoms, as well as postoperative drainage, she was consented for emergency reexploration, expansion of prior laminectomy, placement of a lumbar drain and the indicated procedure. Surgery was performed in the morning as patient ate a full dinner and lumbar drain equipment was not yet available. CONSENT: The risks of the procedure include but are not limited to bleeding, infection, persistent CSF leak, neurological injury, including thromboembolic risk, DVT, PE, and other risks of general anesthesia,. The patient understands the indications for the procedure, the procedure in detail, the risks and benefits, and alternative treatments for her lumbar condition, and wishes to proceed. No guarantees were given for a favorable outcome. DESCRIPTION OF PROCEDURE: After the patient was taken to the operating room, she was placed in the supine position. After general anesthesia was induced and appropriate monitoring lines were placed, a Penn catheter was inserted. The patient was then turned over to the prone position on the Kapil frame. All pressure points were checked and padded. The lumbar region was cleaned with alcohol and prepped with Betadine as well as Hibiclens. Skin incision was extended approximately 1/2 inch cephalad and 1/2 inch caudal extension to gain better access and to gain healthy tissue. At this point, the subcutaneous fluid collection was encountered and was sent for Gram stain and culture. She was found to have caudal region posterior fascial dehiscence. The sutures were removed with Rocha scissors. The paraspinal muscles were retracted laterally and the self-retaining retractor was then inserted. At this point, the tissue was covered with cottonoids. A trocar was placed at the L3-L4 level near the midline, and advanced to the intrathecal space. Clear CSF was obtained. The CSF was sent for glucose, protein, cell count, Gram stain and culture. The needle bevel was turned cephalad, and an intrathecal catheter was inserted and advanced to approximately 22 cm from the fascial plane level. A separate stab incision was opened on the right side and the drain was tunneled through the separate stab incision. It was connected to a connector and tied down with 0 silk sutures. Attention was then turned to the laminectomy site. The microscope was used for microsurgical dissection throughout the procedure. The thecal sac was not pulsating well at all. The laminectomy was extended laterally with medial facetectomy, with the high-speed pneumatic drill, angled curettes and Kerrison rongeur. The dura was protected with cottonoids. After this was performed, extruded disk material was noted lateral to the right L4/L5 nerve root and anterior to the thecal sac. A dental tool and nerve hook were used to dissect the local area and mobilize the disc material. The disk material was removed with a combination of pituitary rongeur as well as dental tool. The thecal sac, right L4 and L5 nerve roots were decompressed. After the disk material was removed, the thecal sac was pulsating nicely with CSF pulsation. At this time CSF was noted emanating anteriorly. It was not deemed to be suturable. At this point, with about 10 mL of CSF removed from the lumbar drain , there was no further CSF drainage. A small piece of DuraGen was cut to appropriate size and placed in the anterior epidural space. The area was then sealed with a layer of DuraSeal. At this point, paraspinal hemostasis was obtained with bipolar electrocautery. The wound was irrigated with copious antibiotic-containing irrigation at this time. The dorsal lumbar fascia was closed with 0 Vicryl interrupted suture and a separate layer of continuous suture with 0 Vicryl suture was also placed. Another round of irrigation was performed in the subcutaneous layer. The subcutaneous fascia was closed with 3-0 Vicryl suture and the skin was closed with 4-0 Vicryl running subcuticular suture. Steri-Strips and a sterile occlusive dressing were applied for the main incision. A separate dressing was applied for the lumbar drain which came out from the right side. The patient tolerated the procedure well. She was turned back to a supine position, and extubated. She was moving bilateral upper and lower extremities well. In fact, her right foot dorsiflexion strength improved to 5/5 while she was in the recovery room. Lumbar drain usage was instructed to the PA as well as the nurses. The drain was working while in the recovery room. All needle and lap counts were correct. The OR time-out procedure was followed. The patient received 2 g of Ancef prior to the procedure. The family and the patient were all updated as to the intraoperative findings, as well as the operative procedure performed. The patient will be in the intensive care unit postoperatively because of the lumbar drain management. Kristyn DUNAWAY/[id number] MTDD
--- NOTE | 2017-06-13 13:01 | PN ---
Progress Note (short form) - Note Progress Note: POD#1 PT states that she had a slight headache overnight but it improved. Overall her right leg feels better. No nausea/tolerating clears. Vital Signs Period Temp Pulse Resp BP Sys/Navarro Pulse Ox Last 24 Hr 98 F-98.7 F 56-94 12-20 90-125/50-71 99-100 uop: clear, 2000ml GEN: A&0x3, NAD CV:RRR Lungs: CTA b/l anteriorly ABD: soft, non-distended LE: SCD/TEDS in place b/l, no calf tenderness or swelling noted b/l RLE: 5/5 dorsi/plantar flexion LLE: 5/5 plantar flexion, 3/5 dorsi flexion BACK: dressing c/d/i, CSF drain intact and draining clear fluid CBC, BMP / 13:45 / 13:45 Laboratory Tests 06/12/17 06/12/06/12/17 05:37 14:30 16:47 POC Glucometer 145 197 209.22061 06/12/16 06/ 21:46 05:27 POC Glucometer 184.74318 141.63062 A/P: 46 yo female, POD#1 Redo-expansion R L4 and L5 hemilaminectomies, microdiscectomy, repair CSF fistula, microdissection; CSF lumbar drain placement Will continue strict bed rest, CSF lumbar drain in place DVT ppx with SCD/TEDS Diet to be advanced as tolerated, diabetic and resume oral diabetic medication Continue IV fluids D/w Dr. Marroquin
--- NOTE | 2017-06-13 15:32 | PN ---
Progress Note (short form) - Note Progress Note: NEUROSURGERY POD #1 PE: AF, VSS O2 sat 100%; FS mostly < 200 Lumbar drain 10cc/hr output- clear CV- RRR; Lungs- CTA; Abd- mildly obese but benign; Ext- no sign of DVT Dressing with no additional drainage (only stable small spot at lumbar drain site) CN- intact II-XII; Motor: 5/5 except R EHL/TA 4-/5 and R in/iv 4 (improved), gastroc 4+; Sensation- slightly decreased R L5/S1; DTR- intact Paraspinal gram stain/cx- some PMN's, no growth x 24 hr; CSF cx- no growth x 24hr CSF- 3 WBC, 1 RBC, glucose 94, protein 33 Lumbar drain working well Cultures negative to date; CSF pattern benign Post-op bed rest x 48 hours total at least when drain in place Cont CSF drain 10 cc/hr Sliding scale
[2017-06-13] MEDS: ACETAMINOPHEN 325 MG TABLET (FP) PO PRN ×2 (15:42→20:09)
[2017-06-13] MEDS: oxyCODONE HCL 5 MG TABLET PO PRN ×2 (15:42→20:08)
[2017-06-13] MEDS ORDERED: PT OWN MED DRAWER 7, Y5N ONE ×2 (16:23→16:44)
[2017-06-13] MEDS: GLIMEPIRIDE 2 MG TABLET (FP) PO SCH (16:28)
[2017-06-14] MEDS: oxyCODONE HCL 5 MG TABLET PO PRN ×4 (02:11→23:42)
[2017-06-14] MEDS: ACETAMINOPHEN 325 MG TABLET (FP) PO PRN ×3 (02:11→16:58)
[2017-06-14] MEDS: DOCUSATE SODIUM 100 MG CAPSULE (FP) PO SCH ×3 (06:02→21:40)
[2017-06-14] MEDS: diazePAM 5 MG TABLET PO SCH ×3 (06:02→21:40)
[2017-06-14 06:28] LABS: MCH 27.5 pg (25.7-33.7); MCHC 33.5 g/dl (32.0-36.0); MEAN PLT VOLUME 10.2 fl (7.5-11.1); PLATELET COUNT 258 K/MM3 (134-434); RDW 13.5 % (11.6-15.6); WHITE BLOOD COUNT 9.9 K/mm3 (4.0-10.0)
[2017-06-14] MEDS: metFORMIN HCL 500 MG TABLET (FP) PO SCH ×2 (06:47→17:00)
[2017-06-14] MEDS: GLIMEPIRIDE 1 MG TABLET (FP) PO SCH (06:47)
[2017-06-14 06:48] LABS: ALBUMIN 2.9 g/dl (3.4-5.0); ANION GAP 6 (8-16); BILIRUBIN,TOTAL 0.5 mg/dL (0.2-1.0); CALCIUM 8.2 mg/dL (8.5-10.1); CO2 28 mmol/L (21-32); CREATININE 0.5 mg/dL (0.55-1.02); GLUCOSE,RANDOM 147 mg/dL (74-106); SGOT/AST 7 U/L (15-37); SGPT/ALT 16 U/L (12-78)
[2017-06-14] MEDS: INSULIN SLIDING SCALE (NOVOLOG) 1 VIAL SQ SCH ×4 (06:48→21:45)
[2017-06-14 06:49] LABS: ALK PHOS 53 U/L (45-117)
--- NOTE | 2017-06-14 07:48 | PN ---
Physical Exam: SUBJECTIVE: Patient seen and examined. No acute events overnight. PAtient feels stronger. pain controlled OBJECTIVE: Vital Signs Period Temp Pulse Resp BP Sys/Navarro Pulse Ox Last 24 Hr 98 F-99 F 68-86 16-22 90-117/50-72 99-100 Intake & Output 06/11/17 06/12/17 06/13/17 06/14/17 23:59 23:59 23:59 23:59 Intake Total 3440 2100 600 Output Total 1400 2640 490 Balance 2040 -540 110 Weight 104.326 kg 103.6 kg 109.571 kg 108.862 kg GENERAL: The patient is awake, alert, and fully oriented, in no acute distress. Patient laying flat on the bed. HEAD: Normal with no signs of trauma. EYES: PERRL, extraocular movements intact, sclera anicteric, conjunctiva clear. No ptosis. ENT: Ears normal, nares patent, oropharynx clear without exudates, moist mucous membranes. NECK: Trachea midline, full range of motion, supple. LUNGS: Breath sounds equal, clear to auscultation bilaterally, no wheezes, no crackles, no accessory muscle use. HEART: Regular rate and rhythm, S1, S2 without murmur, rub or gallop. ABDOMEN: Soft, nontender, nondistended, normoactive bowel sounds, no guarding, no rebound, no hepatosplenomegaly, no masses. EXTREMITIES: 2+ pulses, warm, well-perfused, no edema. NEUROLOGICAL: Cranial nerves II through XII grossly intact. Normal speech, gait not observed. CSF drain in place. PSYCH: Normal mood, normal affect. SKIN: Warm, dry, normal turgor, no rashes or lesions noted Laboratory Results - last 24 hr 06/12/17 06/12/17 06/13/17 16:47 21:46 05:27 WBC RBC Hgb Hct MCV MCH MCHC RDW Plt Count MPV Sodium Potassium Chloride Carbon Dioxide Anion Gap BUN Creatinine Creat Clearance w eGFR POC Glucometer 209.63120 184.74654 141.26154 Random Glucose Calcium Total Bilirubin AST ALT Alkaline Phosphatase Total Protein Albumin 06/13/17 06/14/17 06/14/17 21:33 05:15 05:15 WBC 9.9 RBC 4.49 Hgb 12.3 Hct 36.8 MCV 82.0 MCH 27.5 MCHC 33.5 RDW 13.5 Plt Count 258 MPV 10.2 Sodium 139 Potassium 3.9 Chloride 105 Carbon Dioxide 28 Anion Gap 6 L BUN 10 Creatinine 0.5 L D Creat Clearance w eGFR > 60 POC Glucometer 117.89532 Random Glucose 147 H D Calcium 8.2 L Total Bilirubin 0.5 D AST 7 L ALT 16 Alkaline Phosphatase 53 Total Protein 6.0 L Albumin 2.9 L Active Medications Generic Name Dose Route Start Last Admin Trade Name Freq PRN Reason Stop Dose Admin Acetaminophen 325 mg 06/12/17 18:38 06/14/17 02:11 Tylenol - PO 06/14/17 23:24 325 mg Q4H PRN Administration PAIN Diazepam 5 mg 06/13/17 22:00 06/14/17 06:02 Valium - PO 5 mg TID [facility] Administration Docusate Sodium 100 mg 06/12/17 14:00 06/14/17 06:02 Colace - PO 100 mg TID [facility] Administration Glimepiride 1 mg 06/13/17 07:00 06/14/17 06:47 Amaryl - PO 1 mg DAILY@0700 [facility] Administration Glimepiride 2 mg 06/13/17 16:30 06/13/17 16:28 Amaryl - PO 2 mg DAILY@1630 [facility] Administration Hydromorphone HCl 1 mg 06/12/17 19:04 Dilaudid Injection - IVPUSH Q3H PRN PAIN Insulin Aspart 1 vial 06/12/17 22:00 06/14/17 06:48 Novolog Vial Sliding Scale - SQ 2 units ACHS [facility] Administration Protocol Metformin HCl 500 mg 06/13/17 07:00 06/14/17 06:47 Glucophage - PO 500 mg AM [facility] Administration Metformin HCl 1,000 mg 06/13/17 16:30 06/13/17 16:27 Glucophage - PO 1,000 mg DAILY@1630 [facility] Administration Ondansetron HCl 4 mg 06/12/17 13:02 Zofran Injection IVPB Q6H PRN NAUSEA AND/OR VOMITING Oxycodone HCl 5 mg 06/12/17 18:38 06/14/17 02:11 Roxicodone - PO 5 mg Q4H PRN Administration PAIN Oxycodone HCl 5 mg 06/12/17 18:38 Roxicodone - PO QID PRN PAIN LEVEL 6-10 ASSESSMENT/PLAN: 46 yo female, POD#2 Redo-expansion R L4 and L5 hemilaminectomies, microdiscectomy, repair CSF fistula, microdissection; CSF lumbar drain placement Surgical note:CSF fistula anteriorly; 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 with thecal sac and root impingement R L4-5 Plan: -Activity as per neurosurgery-flat position for total 48hrs; allowed side to side turn Per Neurosurgery - Cont CSF drain 10 cc/hr if possible and clamp at 1 PM Remove drain later if no new symptoms or incisional drainage -Pain control as needed (patient declining today) -Drain epidural fluid 10cc/h as per neurosurgery -lares cath d/t activity restriction -Incentive Spirometry -IV hydration -Diet to be advanced as tolerated, diabetic and resume oral diabetic medication - Since patient is fully supine, diet advanced to pureed and pudding consistencies to avoid aspiration, as per Grounds Crew Supervisor -DVT proph-SCDs Dispo: Can be out of ICU tomorrow Visit type - Emergency Visit Emergency Visit: No - New Patient This patient is new to me today: No - Critical Care Critical Care patient: Yes Total Critical Care Time (in minutes): 30 Critical Care Statement: The care of this patient involved high complexity decision making to prevent further life threatening deterioration of the patient 's condition and/or to evaluate & treat vital organ system(s) failure or risk of failure.
--- NOTE | 2017-06-14 08:31 | PN ---
Progress Note (short form) - Note Progress Note: NEUROSURGERY POD #2 R leg "stronger" " I can feel it" PE: AF, VSS; FS mostly 100's Lumbar drain 6-10cc/hr output- clear but diminishing output as expected CV- RRR; Lungs- CTA; Abd- mildly obese but benign; Ext- no sign of DVT Dressing with no additional drainage (only stable old small spot at lumbar drain exit site and not on incision) CN- intact II-XII; Motor: 5/5 except R EHL/TA 4-/5 and R in/iv 4 (improved), gastroc 4+; Sensation- slightly decreased R L5/S1; DTR- intact Paraspinal gram stain/cx- some PMN's, no growth x 24 hr; CSF cx- no growth x 24hr; both final cultures pending CSF- 3 WBC, 1 RBC, glucose 94, protein 33 Lumbar drain working well Cultures negative to date; CSF pattern benign Post-op bed rest x 48 hours total at least when drain in place Cont CSF drain 10 cc/hr if possible and clamp at 1 PM Remove drain later if no new symptoms or incisional drainage Sliding scale for coverage Diet CSD's
--- NOTE | 2017-06-14 12:08 | PATH ---
Surgical Pathology Report Patient Name: DAFNE GANDARA [facility]. Rec. #: [id number] /Age/Gender: 1970 (Age: 46) / F Account: [id number] [facility] Taken: 06/12/2017 Received: 06/13/2017 Reported: 06/14/2017 Physicians: Jose Martin Marroquin M.D. Specimen(s) Received RIGHT DISC L4-L5 Clinical History Recurrent HNP, CSF fistula Final Diagnosis INTERVERTEBRAL DISC, L4-5, PARTIAL EXCISION: PORTIONS OF INTERVERTEBRAL DISC. Electronically Signed Vamsi Cardoso M.D. Gross Description Received in formalin labeled "right L4-L5 disc," is a 2.4 x 2.2 x 0.3 cm aggregate of [place] fragments of fibrocartilaginous tissue. The specimen is entirely submitted in one cassette. 06/13/201706/13/2017
--- NOTE | 2017-06-14 12:17 | PN ---
Progress Note (short form) - Note Progress Note: Patient seen and examined in the ICU. Pain is better. Continued CSF drainage of about 10cc per hour. No CP or SOB. No fevers or chills. No nausea. OBJECTIVE: Intake & Output 06/11/17 06/12/17 06/13/17 06/14/17 23:59 23:59 23:59 23:59 Intake Total 3440 2100 920 Output Total 1400 2640 512 Balance 2040 -540 408 Weight 230 lb 228 lb 6.4 oz 241 lb 9 oz 240 lb Last Vital Signs Temp Pulse Resp BP Pulse Ox 98.7 F 86 16 110/58 96 06/14/17 10:04 06/14/17 10:09 06/14/17 10:00 06/14/17 10:00 06/14/17 10:09 Active Medications Acetaminophen (Tylenol -) 325 mg PO Q4H PRN PRN Reason: PAIN Stop: 06/14/17 23:24 Last Admin: 06/14/17 09:54 Dose: 325 mg Diazepam (Valium -) 5 mg PO TID [facility] Last Admin: 06/14/17 06:02 Dose: 5 mg Docusate Sodium (Colace -) 100 mg PO TID [facility] Last Admin: 06/14/17 06:02 Dose: 100 mg Glimepiride (Amaryl -) 1 mg PO DAILY@0700 [facility] Last Admin: 06/14/17 06:47 Dose: 1 mg Glimepiride (Amaryl -) 2 mg PO DAILY@1630 [facility] Last Admin: 06/13/17 16:28 Dose: 2 mg Hydromorphone HCl (Dilaudid Injection -) 1 mg IVPUSH Q3H PRN PRN Reason: PAIN Insulin Aspart (Novolog Vial Sliding Scale -) 1 vial SQ ACHS [facility] PRN Reason: Protocol Last Admin: 06/14/17 06:48 Dose: 2 units Metformin HCl (Glucophage -) 500 mg PO AM [facility] Last Admin: 06/14/17 06:47 Dose: 500 mg Metformin HCl (Glucophage -) 1,000 mg PO DAILY@1630 [facility] Last Admin: 06/13/17 16:27 Dose: 1,000 mg Ondansetron HCl (Zofran Injection) 4 mg IVPB Q6H PRN PRN Reason: NAUSEA AND/OR VOMITING Oxycodone HCl (Roxicodone -) 5 mg PO Q4H PRN PRN Reason: PAIN Last Admin: 06/14/17 09:53 Dose: 5 mg Oxycodone HCl (Roxicodone -) 5 mg PO QID PRN PRN Reason: PAIN LEVEL 6-10 Gen: NAD at rest Heart: RRR Lung: decreased breath sounds at the bases Abd: soft, nontender Ext: no edema Laboratory Results - last 24 hr 06/13/17 06/13/17 06/13/17 10:28 16:20 21:33 WBC RBC Hgb Hct MCV MCH MCHC RDW Plt Count MPV Sodium Potassium Chloride Carbon Dioxide Anion Gap BUN Creatinine Creat Clearance w eGFR POC Glucometer 125.34018 223.64998 117.12029 Random Glucose Calcium Total Bilirubin AST ALT Alkaline Phosphatase Total Protein Albumin 06/14/17 06/14/17 05:15 05:15 WBC 9.9 RBC 4.49 Hgb 12.3 Hct 36.8 MCV 82.0 MCH 27.5 MCHC 33.5 RDW 13.5 Plt Count 258 MPV 10.2 Sodium 139 Potassium 3.9 Chloride 105 Carbon Dioxide 28 Anion Gap 6 L BUN 10 Creatinine 0.5 L D Creat Clearance w eGFR > 60 POC Glucometer Random Glucose 147 H D Calcium 8.2 L Total Bilirubin 0.5 D AST 7 L ALT 16 Alkaline Phosphatase 53 Total Protein 6.0 L Albumin 2.9 L ASSESSMENT AND PLAN: CSF Leak/Fistula s/p Fistula repair/Lumbar Drain placement DM - pain control - flat position x 48hrs - Lumbar CSF drainage per neurosurgery - PO as tolerated - incentive spirometry - DVT prophylaxis - continue ICU monitoring Dr Hennessy Critical care time spent in reviewing chart, evaluating patient and formulating plan - 35 minutes.
--- NOTE | 2017-06-14 12:18 | PN ---
Teaching Attending Note Name of Resident: Humberto Okeefe ATTENDING PHYSICIAN STATEMENT I saw and evaluated the patient. I reviewed the resident's note and discussed the case with the resident. I agree with the resident's findings and plan as documented. SUBJECTIVE: Patient seen and examined in the ICU. Pain is better. Continued CSF drainage of about 10cc per hour. No CP or SOB. No fevers or chills. No nausea. OBJECTIVE: Intake & Output 06/11/17 06/12/17 06/13/17 06/14/17 23:59 23:59 23:59 23:59 Intake Total 3440 2100 920 Output Total 1400 2640 512 Balance 2040 -540 408 Weight 230 lb 228 lb 6.4 oz 241 lb 9 oz 240 lb Last Vital Signs Temp Pulse Resp BP Pulse Ox 98.7 F 86 16 110/58 96 06/14/17 10:04 06/14/17 10:09 06/14/17 10:00 06/14/17 10:00 06/14/17 10:09 Active Medications Acetaminophen (Tylenol -) 325 mg PO Q4H PRN PRN Reason: PAIN Stop: 06/14/17 23:24 Last Admin: 06/14/17 09:54 Dose: 325 mg Diazepam (Valium -) 5 mg PO TID [facility] Last Admin: 06/14/17 06:02 Dose: 5 mg Docusate Sodium (Colace -) 100 mg PO TID [facility] Last Admin: 06/14/17 06:02 Dose: 100 mg Glimepiride (Amaryl -) 1 mg PO DAILY@0700 [facility] Last Admin: 06/14/17 06:47 Dose: 1 mg Glimepiride (Amaryl -) 2 mg PO DAILY@1630 [facility] Last Admin: 06/13/17 16:28 Dose: 2 mg Hydromorphone HCl (Dilaudid Injection -) 1 mg IVPUSH Q3H PRN PRN Reason: PAIN Insulin Aspart (Novolog Vial Sliding Scale -) 1 vial SQ [facility] PRN Reason: Protocol Last Admin: 06/14/17 06:48 Dose: 2 units Metformin HCl (Glucophage -) 500 mg PO AM [facility] Last Admin: 06/14/17 06:47 Dose: 500 mg Metformin HCl (Glucophage -) 1,000 mg PO DAILY@1630 [facility] Last Admin: 06/13/17 16:27 Dose: 1,000 mg Ondansetron HCl (Zofran Injection) 4 mg IVPB Q6H PRN PRN Reason: NAUSEA AND/OR VOMITING Oxycodone HCl (Roxicodone -) 5 mg PO Q4H PRN PRN Reason: PAIN Last Admin: 06/14/17 09:53 Dose: 5 mg Oxycodone HCl (Roxicodone -) 5 mg PO QID PRN PRN Reason: PAIN LEVEL 6-10 Gen: NAD at rest Heart: RRR Lung: decreased breath sounds at the bases Abd: soft, nontender Ext: no edema Laboratory Results - last 24 hr 06/13/17 06/13/17 06/13/17 10:28 16:20 21:33 WBC RBC Hgb Hct MCV MCH MCHC RDW Plt Count MPV Sodium Potassium Chloride Carbon Dioxide Anion Gap BUN Creatinine Creat Clearance w eGFR POC Glucometer 125.87209 223.26925 117.22987 Random Glucose Calcium Total Bilirubin AST ALT Alkaline Phosphatase Total Protein Albumin 06/14/17 06/14/17 05:15 05:15 WBC 9.9 RBC 4.49 Hgb 12.3 Hct 36.8 MCV 82.0 MCH 27.5 MCHC 33.5 RDW 13.5 Plt Count 258 MPV 10.2 Sodium 139 Potassium 3.9 Chloride 105 Carbon Dioxide 28 Anion Gap 6 L BUN 10 Creatinine 0.5 L D Creat Clearance w eGFR > 60 POC Glucometer Random Glucose 147 H D Calcium 8.2 L Total Bilirubin 0.5 D AST 7 L ALT 16 Alkaline Phosphatase 53 Total Protein 6.0 L Albumin 2.9 L ASSESSMENT AND PLAN: CSF Leak/Fistula s/p Fistula repair/Lumbar Drain placement DM - pain control - flat position x 48hrs - Lumbar CSF drainage per neurosurgery - PO as tolerated - incentive spirometry - DVT prophylaxis - continue ICU monitoring Dr Hennessy Critical care time spent in reviewing chart, evaluating patient and formulating plan - 35 minutes.
[2017-06-14] MEDS ORDERED: PT OWN MED DRAWER 7, Y5N ONE (16:56)
[2017-06-14] MEDS: GLIMEPIRIDE 2 MG TABLET (FP) PO SCH (17:00)
[2017-06-14] MEDS ORDERED: INSULIN (NOVOLOG) ASPART 100 UNITS/ML 10ML VIAL ONE (17:22)
[2017-06-15 06:13] LABS: MCH 27.6 pg (25.7-33.7); MCHC 33.6 g/dl (32.0-36.0); MEAN CELL VOLUME 82.3 fl (80-96); PLATELET COUNT 265 K/MM3 (134-434); RDW 13.9 % (11.6-15.6); WHITE BLOOD COUNT 11.3 K/mm3 (4.0-10.0)
[2017-06-15] MEDS ORDERED: PT OWN MED DRAWER 7, Y5N ONE ×2 (06:19→16:57)
[2017-06-15 06:28] LABS: ANION GAP 10 (8-16); BILIRUBIN,TOTAL 0.5 mg/dL (0.2-1.0); CALCIUM 8.8 mg/dL (8.5-10.1); CO2 28 mmol/L (21-32); CREATININE 0.6 mg/dL (0.55-1.02); GLUCOSE,RANDOM 143 mg/dL (74-106); SGOT/AST 6 U/L (15-37); SGPT/ALT 13 U/L (12-78)
[2017-06-15 06:30] LABS: ALK PHOS 58 U/L (45-117); TOT PROT 6.1 g/dl (6.4-8.2)
[2017-06-15] MEDS: metFORMIN HCL 500 MG TABLET (FP) PO SCH (06:30)
[2017-06-15] MEDS: diazePAM 5 MG TABLET PO SCH ×3 (06:30→21:24)
[2017-06-15] MEDS: DOCUSATE SODIUM 100 MG CAPSULE (FP) PO SCH ×3 (06:30→21:26)
[2017-06-15] MEDS: GLIMEPIRIDE 1 MG TABLET (FP) PO SCH (06:30)
[2017-06-15] MEDS: oxyCODONE HCL 5 MG TABLET PO PRN ×3 (06:50→17:00)
[2017-06-15] MEDS: INSULIN SLIDING SCALE (NOVOLOG) 1 VIAL SQ SCH ×4 (06:51→21:26)
--- NOTE | 2017-06-15 10:00 | PN ---
Progress Note (short form) - Note Progress Note: NEUROSURGERY POD #3 Lumbar drain out yesterday evening PE: AF, VSS CV- RRR; Lungs- CTA; Abd- mildly obese but benign; Ext- no sign of DVT Dressing with no significant drainage (only a small amount at lumbar drain exit site and not on incision) CN- intact II-XII; Motor: 5/5 except R EHL/TA 4-/5 and R in/iv 4 (improved), gastroc 4+; Sensation- slightly decreased R L5/S1 Paraspinal gram stain/cx- some PMN's, no growth (final); CSF cx- no growth ( final) Lumbar drain working well May be OOB Sliding scale for coverage Diet SCD's when in bed D/W Dr Hennessy Floor care 8w/6S
--- NOTE | 2017-06-15 10:03 | PN ---
Progress Note (short form) - Note Progress Note: Patient seen and examined in the ICU. Pain is better. Noted lumbar catheter was removed. Some mild "stiffness" when trying to move RLE, likely due to positioning/ limited movement. No CP or SOB. No fevers or chills. No nausea. OBJECTIVE: Intake & Output 06/12/17 06/13/17 06/14/17 06/15/17 23:59 23:59 23:59 23:59 Intake Total 3440 2100 1670 Output Total 1400 2640 1436 1200 Balance 2040 -540 234 -1200 Weight 228 lb 6.4 oz 241 lb 9 oz 240 lb 239 lb 2.08 oz Last Vital Signs Temp Pulse Resp BP Pulse Ox 98.4 F 85 21 111/73 96 06/15/17 06:00 06/15/17 08:00 06/15/17 08:00 06/15/17 08:00 06/14/17 20:39 Active Medications Diazepam (Valium -) 5 mg PO TID [facility] Last Admin: 06/15/17 06:30 Dose: 5 mg Docusate Sodium (Colace -) 100 mg PO TID [facility] Last Admin: 06/15/17 06:30 Dose: 100 mg Glimepiride (Amaryl -) 1 mg PO DAILY@0700 [facility] Last Admin: 06/15/17 06:30 Dose: 1 mg Glimepiride (Amaryl -) 2 mg PO DAILY@1630 [facility] Last Admin: 06/14/17 17:00 Dose: 2 mg Hydromorphone HCl (Dilaudid Injection -) 1 mg IVPUSH Q3H PRN PRN Reason: PAIN Insulin Aspart (Novolog Vial Sliding Scale -) 1 vial SQ ACHS [facility] PRN Reason: Protocol Last Admin: 06/15/17 06:51 Dose: 2 units Metformin HCl (Glucophage -) 500 mg PO AM [facility] Last Admin: 06/15/17 06:30 Dose: 500 mg Metformin HCl (Glucophage -) 1,000 mg PO DAILY@1630 [facility] Last Admin: 06/14/17 17:00 Dose: 1,000 mg Ondansetron HCl (Zofran Injection) 4 mg IVPB Q6H PRN PRN Reason: NAUSEA AND/OR VOMITING Oxycodone HCl (Roxicodone -) 5 mg PO Q4H PRN PRN Reason: PAIN Last Admin: 06/15/17 06:50 Dose: 5 mg Oxycodone HCl (Roxicodone -) 5 mg PO QID PRN PRN Reason: PAIN LEVEL 6-10 Gen: NAD at rest Heart: RRR Lung: decreased breath sounds at the bases Abd: soft, nontender Ext: no edema Laboratory Results - last 24 hr 06/15/17 06/15/17 05:00 05:00 WBC 11.3 H RBC 4.66 Hgb 12.9 Hct 38.3 MCV 82.3 MCH 27.6 MCHC 33.6 RDW 13.9 Plt Count 265 MPV 10.0 Sodium 138 Potassium 4.6 Chloride 100 Carbon Dioxide 28 Anion Gap 10 BUN 12 Creatinine 0.6 Creat Clearance w eGFR > 60 Random Glucose 143 H Calcium 8.8 Total Bilirubin 0.5 AST 6 L ALT 13 Alkaline Phosphatase 58 Total Protein 6.1 L Albumin 3.0 L ASSESSMENT AND PLAN: CSF Leak/Fistula s/p Fistula repair/Lumbar Drain placement DM - Positional change / further mobilization per Neurosurgery - PO as tolerated - incentive spirometry - VTE prophylaxis Dr Hennessy
[2017-06-15] MEDS ORDERED: ONDANSETRON 4 MG/2 ML VIAL IVPB PRN (10:10)
[2017-06-15] MEDS ORDERED: oxyCODONE HCL 5 MG TABLET PO PRN (10:10)
[2017-06-15] MEDS ORDERED: metFORMIN HCL 500 MG TABLET (FP) PO SCH (16:30)
[2017-06-15] MEDS ORDERED: GLIMEPIRIDE 2 MG TABLET (FP) PO SCH (16:30)
[2017-06-16] MEDS: DOCUSATE SODIUM 100 MG CAPSULE (FP) PO SCH (06:13)
[2017-06-16] MEDS: diazePAM 5 MG TABLET PO SCH (06:13)
[2017-06-16] MEDS: INSULIN SLIDING SCALE (NOVOLOG) 1 VIAL SQ SCH ×2 (06:15→11:49)
[2017-06-16] MEDS ORDERED: metFORMIN HCL 500 MG TABLET (FP) PO SCH (07:00)
[2017-06-16] MEDS ORDERED: GLIMEPIRIDE 1 MG TABLET (FP) PO SCH ×2 (07:00)
[2017-06-16 08:21] VITALS: BP 122/78; PULSE 100; TEMP 97.6
--- NOTE | 2017-06-16 10:23 | PN ---
Progress Note (short form) - Note Progress Note: OOB to chair. Feels overall better. RLE cramping a more than 50% better with movement/stretching. No CP or SOB. No fevers or chills. No nausea. OBJECTIVE: Intake & Output 06/13/17 06/14/17 06/15/17 06/16/17 23:59 23:59 23:59 23:59 Intake Total 2100 1670 Output Total 2640 1436 1400 Balance -540 234 -1400 Weight 241 lb 9 oz 240 lb 239 lb 2.08 oz Last Vital Signs Temp Pulse Resp BP Pulse Ox 97.6 F 100 H 20 122/78 97 06/16/17 08:19 06/16/17 08:19 06/16/17 08:19 06/16/17 08:19 06/15/17 21:00 Active Medications Diazepam (Valium -) 5 mg PO TID [facility] Last Admin: 06/16/17 06:13 Dose: 5 mg Docusate Sodium (Colace -) 100 mg PO TID [facility] Last Admin: 06/16/17 06:13 Dose: 100 mg Glimepiride (Amaryl -) 1 mg PO DAILY@0700 [facility] Last Admin: 06/16/17 06:34 Dose: 1 mg Glimepiride (Amaryl -) 2 mg PO DAILY@1630 [facility] Last Admin: 06/15/17 17:02 Dose: 2 mg Insulin Aspart (Novolog Vial Sliding Scale -) 1 vial SQ ACHS [facility] PRN Reason: Protocol Last Admin: 06/16/17 06:15 Dose: 4 units Metformin HCl (Glucophage -) 1,000 mg PO DAILY@1630 [facility] Last Admin: 06/15/17 17:01 Dose: 1,000 mg Metformin HCl (Glucophage -) 500 mg PO AM [facility] Last Admin: 06/16/17 06:13 Dose: 500 mg Ondansetron HCl (Zofran Injection) 4 mg IVPB Q6H PRN PRN Reason: NAUSEA AND/OR VOMITING Oxycodone HCl (Roxicodone -) 5 mg PO Q4H PRN PRN Reason: PAIN Last Admin: 06/15/17 17:00 Dose: 5 mg Gen: NAD at rest Heart: RRR Lung: decreased breath sounds at the bases Abd: soft, nontender Ext: no edema Laboratory Results - last 24 hr 06/14/17 06/14/17 06/14/17 06:15 11:37 17:11 POC Glucometer 159.93742 125.92816 204.32377 06/14/17 06/15/17 06/15/17 21:43 06:16 10:54 POC Glucometer 138.03275 171.78854 184.98171 06/15/17 06/15/17 06/16/17 16:54 21:25 06:08 POC Glucometer 204 228 223 ASSESSMENT AND PLAN: CSF Leak/Fistula s/p Fistula repair/Lumbar Drain placement DM - Ambulate as tolerated - PO as tolerated - incentive spirometry - VTE prophylaxis Dr Hennessy
--- NOTE | 2017-06-16 10:40 | PN ---
Progress Note (short form) - Note Progress Note: NEUROSURGERY POD #3 Walking around PE: Tmax 99.3, AF, VSS CV- RRR; Lungs- CTA; Abd- mildly obese but benign; Ext- no sign of DVT Dressing with no drainage CN- intact II-XII; Motor: 5/5 except R EHL/TA 4/5 and R in/iv 4-4+ (improved), gastroc 4+; Sensation- slightly decreased R L5/S1 Paraspinal gram stain/cx- some PMN's, no growth (final); CSF cx- no growth ( final) Sliding scale for coverage Diet SCD's when in bed Instructions given for home D/C home
[2017-06-16] MEDS ORDERED: INSULIN (NOVOLOG) ASPART 100 UNITS/ML 10ML VIAL ONE (11:40)
== END 2017-06-16 14:03 | disposition home or self-care (01) | DRG 29 ==
LOC: JER 21:07 → JERBED 21:31 → J6S 06-12 00:40 → JICU 06-12 16:06 → J8W 06-15 11:28
PROVIDERS: ADMIT Neurological Surgery; ATTEND Neurological Surgery
PROC: 01NB0ZZ Release Lumbar Nerve, Open Approach (ICD-10-PCS; 2017-06-12)
PROC: 00UT0JZ Supplement Spinal Meninges with Synthetic Substitute, Open Approach (ICD-10-PCS; 2017-06-12)
PROC: 009Y3ZX Drainage of Lumbar Spinal Cord, Percutaneous Approach, Diagnostic (ICD-10-PCS; 2017-06-12)
PROC: 0SB20ZZ Excision of Lumbar Vertebral Disc, Open Approach (ICD-10-PCS; principal; 2017-06-12 11:30)
DX: G97.82 Other postprocedural complications and disorders of nervous system (principal); T81.32XA Disruption of internal operation (surgical) wound, not elsewhere classified, initial encounter; G96.0 Cerebrospinal fluid leak; Y83.8 Other surgical procedures as the cause of abnormal reaction of the patient, or of later complication, without mention of misadventure at the time of the procedure; M51.26 Other intervertebral disc displacement, lumbar region; E66.8 Other obesity; Z68.37 Body mass index [BMI] 37.0-37.9, adult; E11.9 Type 2 diabetes mellitus without complications; M21.379 Foot drop, unspecified foot; M25.80 Other specified joint disorders, unspecified joint
CPT/HCPCS: 36415; 71020-TC; 72100-TC; 72131-TC; 80053; 81003; 81015; 82945; 84157; 84703; 85025; 85027; 85610; 86850; 86900; 86901; 87070; 87205; 88304-TC; 89050; 93005; 93010; 94760; 99285-25